=== PATIENT | female | born 1960 | race Caucasian/White ===

== ENCOUNTER 2016-10-09 17:32 | Emergency (ER) | payer OTHER ==
[2016-10-09 17:37] VITALS: BMI 36.6
[2016-10-09] MEDS ORDERED: KETOROLAC TROMETHAMINE 30 MG/1 ML VIAL IVPUSH ONE (19:10)
--- NOTE | 2016-10-09 19:11 | PDOC ---
[id number] No Limitations - History of Present Illness Initial Comments: 10/09/16 19:11 The patient is a 56 year old female, with a significant past medical history of hypertension( on enalapril and metoprolol), hyperlipidemia, and hepatitis C, who presents to the emergency department to the emergency department complaining of right-sided lower back pain radiating into her right groin for approximately 3 days. Patient reports her pain is intermittent and describe it as a tightness. Patient rates her pain a 9/10. She reports her pain is alleviated when standing, but exacerbated when lying down or sitting. She reports taking motrin and a muscle relaxant yesterday with no relief. The patient denies any associated fever, chills, nausea, vomiting, diarrhea, or constipation. The patient denies any dysuria, hematuria, frequency, or urgency. The patient reports she last took her hypertension medications yesterday, and admits she takes them every other day. The patient denies any headache, changes in vision, numbness, or paresthesias. The patient denies any chest pain, shortness of breath, diaphoresis, or palpitations. Allergies: None reported. Past Surgical History: None reported. Social History: Former smoker. Former heroine and cocaine user. Denies ETOH use. PCP: Dr. Orozco <Anselmo Vaughan - Last Filed: 10/09/16 19:11> <Quentin Marshall - Last Filed: 10/11/16 13:23> - General Chief Complaint: Pain, Acute Stated Complaint: PAIN, ACUTE Time Seen by Provider: 10/09/16 18:30 Past History <Anselmo Vaughan - Last Filed: 10/09/16 19:11> - Past Medical History HTN: Yes Liver Disease: Yes (HEP C) - Psycho/Social/Smoking Cessation Hx Anxiety: No Suicidal Ideation: No Smoking Status: Yes Smoking History: Never smoked Have you smoked in the past 12 months: No Number of Cigarettes Smoked Daily: 0 Hx Alcohol Use: No Drug/Substance Use Hx: No <Quentin Marshall - Last Filed: 10/11/16 13:23> - Past Medical History Allergies/Adverse Reactions: Allergies Allergy/AdvReac Type Severity Reaction Status Date / Time No Known Allergies Allergy Verified 10/09/16 17:38 Home Medications: Ambulatory Orders Enalapril Maleate [Vasotec -] 10 mg PO DAILY 07/07/12 Metoprolol Succinate [Toprol XL -] 25 mg PO BID 07/07/12 Review of Systems - Review of Systems Able to Perform ROS?: Yes Comments:: 10/09/16 19:11 CONSTITUTIONAL: Absent: Fever, Chills, Diaphoresis, Generalized Weakness, Malaise, Loss of Appetite HEENT: Absent: Rhinorrhea, Nasal Congestion, Throat Pain, Throat Swelling, Difficulty Swallowing, Mouth Swelling, Ear Pain, Eye Pain, Visual Changes CARDIOVASCULAR: Absent: Chest Pain, Syncope, Palpitations, Irregular Heart Rate, Lightheadedness , Peripheral Edema RESPIRATORY: Absent: Cough, Shortness of Breath, SOB with Exertion, Orthopnea, Wheezing, Stridor, Hemoptysis GASTROINTESTINAL: Absent: Abdominal pain, Abdominal Distension, Nausea, Vomiting, Diarrhea, Constipation, Melena, Hematochezia GENITOURINARY: Absent: Dysuria, Frequency, Urgency, Hesitancy, Genital Pain MUSCULOSKELETAL: Present: +Right lower back radiating into right groin Absent: Myalgia, Arthralgia, Joint Swelling, Neck Pain SKIN: Absent: Rash, Itching, Pallor HEMATOLOGIC/IMMUNOLOGIC: Absent: Easy Bleeding, Easy Bruising, Lymphadenopathy, Frequent infections ENDOCRINE: Absent: Unexplained Weight Gain, Unexplained Weight Loss, Heat Intolerance, Cold Intolerance NEUROLOGIC: Absent: Headache, Focal Weakness, Paresthesias, Vertigo, Lightheadedness, Unsteady Gait, Seizure, Mental Status Changes, Incontinence PSYCHIATRIC: Absent: Anxiety, Depression <Vaughan,Giomilsy - Last Filed: 10/09/16 19:11> *Physical Exam - Vital Signs Last Vital Signs Temp Pulse Resp BP Pulse Ox 97.9 F 66 18 201/120 96 10/09/16 17:34 10/09/16 17:34 10/09/16 17:34 10/09/16 17:34 10/09/16 17:34 - Physical Exam Comments: 10/09/16 19:12 GENERAL: The patient is awake, alert, and fully oriented, in no acute distress. HEAD: Normal with no signs of trauma. EYES: Pupils equal, round and reactive to light, extraocular movements intact, sclera anicteric, conjunctiva clear. ENT: Ears normal, nares patent, oropharynx clear without exudates. Moist mucous membranes. NECK: Normal range of motion, supple without lymphadenopathy, JVD, or masses. LUNGS: Breath sounds equal, clear to auscultation bilaterally. No wheezes, and no crackles. HEART: Regular rate and rhythm, normal S1 and S2 without murmur, rub or gallop. ABDOMEN: Soft, nontender, normoactive bowel sounds. No guarding, no rebound. No masses. BACK: No CVA tenderness EXTREMITIES: Normal range of motion, no edema. No clubbing or cyanosis. No cords , erythema, or tenderness. NEUROLOGICAL: Cranial nerves II through XII grossly intact. Normal speech, normal gait. PSYCH: Normal mood, normal affect. SKIN: Warm, Dry, normal turgor, no rashes or lesions noted. <Anselmo Vaughan - Last Filed: 10/09/16 19:11> - Vital Signs Last Vital Signs Temp Pulse Resp BP Pulse Ox 97.9 F 66 18 201/120 96 10/09/16 17:34 10/09/16 17:34 10/09/16 17:34 10/09/16 17:34 10/09/16 17:34 <Quentin Marshall - Last Filed: 10/11/16 13:23> ED Treatment Course - LABORATORY CBC & Chemistry Diagram: 10/09/16 19:10 10/09/16 19:10 <Quentin Marshall - Last Filed: 10/11/16 13:23> Medical Decision Making - Medical Decision Making 10/11/16 13:22 flank pain and low back pain, r/o kidney stone vs musculoskeletal pain patient endorsed to Dr. Herbert pending labs and possible CT scan. <Quentin Marshall - Last Filed: 10/11/16 13:23> *DC/Admit/Observation/Transfer - Attestations Scribe Attestion: 10/09/16 19:12 Documentation prepared by Anselmo Vaughan, acting as forensic medical examiner for Quentin Marshall MD. <Anselmo Vaughan - Last Filed: 10/09/16 19:11> <Quentin Marshall - Last Filed: 10/11/16 13:23> Diagnosis at time of Disposition: Flank pain, Musculoskeletal pain - Discharge Dispostion Disposition: HOME Condition at time of disposition: Good - Referrals Referrals: Evelyn Orozco MD [Primary Care Provider] - 24 hours - Patient Instructions Additional Instructions: Rest, Tylenol or Motrin for pain Warm compresses Followup with your primary care physician in 24-48 hours Return immediately if you worsen in any way Also, as we discussed, you are overdue for your routine Pap smear and ASSISTANT BASKETBALL COACH exam Please also call your ASSISTANT BASKETBALL COACH to arrange an appointment - Post Discharge Activity Work/School Note: Back to Work
[2016-10-09] MEDS ORDERED: SODIUM CHLORIDE 1,000 ML IV SCH (19:15)
[2016-10-09 19:17] LABS: BASOPHIL 0.6 % (0-2.0); EOSINOPHIL 1.9 % (0-4.5); MCH 30.7 pg (25.7-33.7); MCHC 32.5 g/dl (32.0-36.0); MEAN CELL VOLUME 94.7 fl (80-96); MEAN PLT VOLUME 9.4 fl (7.5-11.1); NEUTROPHILS 57.6 % (42.8-82.8); PLATELET COUNT 208 K/MM3 (134-434); RDW 13.3 % (11.6-15.6); WHITE BLOOD COUNT 7.2 K/mm3 (4.0-10.0)
[2016-10-09 19:44] LABS: ALBUMIN 3.9 g/dl (3.4-5.0); ALK PHOS 89 U/L (45-117); ANION GAP 13 (8-16); BILIRUBIN,TOTAL 0.4 mg/dL (0.2-1.0); CALCIUM 8.9 mg/dL (8.5-10.1); CO2 21 mmol/L (21-32); COCKROFT - GAULT 183.9995; CREATININE 0.5 mg/dL (0.55-1.02); GLUCOSE,RANDOM 113 mg/dL (74-106); SGPT/ALT 32 U/L (12-78); TOT PROT 7.4 g/dl (6.4-8.2)
[2016-10-09] MEDS ORDERED: KETOROLAC TROMETHAMINE 30 MG/1 ML VIAL ONE (19:46)
[2016-10-09 19:47] LABS: SGOT/AST 32 U/L (15-37)
[2016-10-09] MEDS ORDERED: METOPROLOL SUCCINATE 25 MG TAB.SR.24H (FP) PO ONE (20:56)
[2016-10-09] MEDS ORDERED: METOPROLOL SUCCINATE 50 MG TAB.SR.24H (FP) ONE (21:00)
[2016-10-09] MEDS ORDERED: ENALAPRIL MALEATE 10 MG TABLET (FP) PO SCH (21:00)
[2016-10-09] MEDS ORDERED: ENALAPRIL MALEATE 5 MG TABLET (FP) ONE (21:00)
[2016-10-09] MEDS ORDERED: ENALAPRIL MALEATE 5 MG TABLET (FP) PO ONE (21:15)
[2016-10-09] MEDS ORDERED: ENALAPRIL MALEATE 5 MG TABLET (FP) PO SCH (21:15)
[2016-10-09] MEDS ORDERED: METOPROLOL SUCCINATE 50 MG TAB.SR.24H (FP) PO ONE (21:15)
[2016-10-09 21:28] LABS: URINE APPEARANCE CLEAR; URINE BILIRUBIN NEGATIVE (NEGATIVE); URINE BLOOD NEGATIVE (NEGATIVE); URINE COLOR LTYELLOW; URINE GLUCOSE (UA) NEGATIVE (NEGATIVE); URINE KETONE NEGATIVE (NEGATIVE); URINE LEUK ESTERASE NEGATIVE (NEGATIVE); URINE NITRITE NEGATIVE (NEGATIVE); URINE PROTEIN NEGATIVE (NEGATIVE); URINE UROBILINOGEN NEGATIVE E.U./dl (0.2-1.0)
[2016-10-10 07:52] VITALS: BP 143/78; PULSE 65; TEMP 98.1
--- NOTE | 2016-10-10 08:03 | PDOC ---
*Physical Exam - Vital Signs Last Vital Signs Temp Pulse Resp BP Pulse Ox 98.1 F 65 18 143/78 97 10/10/16 07:45 10/10/16 07:45 10/10/16 07:45 10/10/16 07:45 10/10/16 07:45 - Physical Exam Comments: 10/10/16 08:01 SIGN IN Sign-out received from outgoing Emergency Physician Pt interviewed and examined Ancillary studies reviewed Patient was seen by Dr. Marshall yesterday, and signed out to Dr. Awilda Kimbrough signed the patient out to me this morning, and the patient had still not had her CT scan yet The patient is a 56 year old female, with a significant past medical history of hypertension( on enalapril and metoprolol), hyperlipidemia, and hepatitis C, who presents to the emergency department to the emergency department complaining of right-sided lower back pain radiating into her right groin for approximately 3 days. She states the pain is been off and on and she describes it as a "tight feeling" She denies any associated dysuria urgency or frequency, or hematuria She is 10 years post menopausal, and denies any vaginal spotting or bleeding She denies any nausea vomiting or diarrhea or constipation She has no history of kidney stones She states the pain is somewhat worse with musculoskeletal maneuvers, and is worse when lying down or sitting and better standing She denies any fevers or chills She denies any prior abdominal surgery Physical exam Vital Signs - 24 hr 10/09/16 10/09/16 10/09/16 17:34 20:56 23:07 Temperature 97.9 F 98.3 F Pulse Rate 66 Pulse Rate [ 62 64 Right Radial] Pulse Rate [ Right] Respiratory 18 20 20 Rate Blood Pressure 201/120 Blood Pressure 195/110 154/88 [Right Arm] O2 Sat by Pulse 96 99 98 Oximetry (%) 10/10/16 10/10/16 04:59 07:45 Temperature 97.7 F 98.1 F Pulse Rate Pulse Rate [ 58 L Right Radial] Pulse Rate [ 65 Right] Respiratory 20 18 Rate Blood Pressure Blood Pressure 129/71 143/78 [Right Arm] O2 Sat by Pulse 98 97 Oximetry (%) Patient is alert and answering questions Head is normocephalic and atraumatic Lungs are clear bilaterally Back- There is no CVA tenderness Heart is regular rate and rhythm Abdomen normal active bowel sounds without a past medical There is minimal to no abdominal tenderness at this time Labwork reviewed Laboratory Results - last 24 hr 10/09/16 10/09/16 10/09/16 19:10 19:10 21:10 WBC 7.2 RBC 4.51 Hgb 13.9 Hct 42.7 MCV 94.7 MCHC 32.5 RDW 13.3 Plt Count 208 MPV 9.4 Neutrophils % 57.6 Lymphocytes % 33.3 D Monocytes % 6.6 Eosinophils % 1.9 D Basophils % 0.6 Sodium 140 Potassium 4.6 Chloride 106 Carbon Dioxide 21 Anion Gap 13 BUN 9 D Creatinine 0.5 L Creat Clearance w eGFR > 60 Random Glucose 113 H Calcium 8.9 Total Bilirubin 0.4 D AST 32 D ALT 32 Alkaline Phosphatase 89 Total Protein 7.4 Albumin 3.9 Lipase 88 Urine Color Ltyellow Urine Appearance Clear Urine pH 6.0 D Ur Specific [place] 1.012 Urine Protein Negative Urine Glucose (UA) Negative Urine Ketones Negative Urine Blood Negative Urine Nitrite Negative Urine Bilirubin Negative Urine Urobilinogen Negative Ur Leukocyte Esterase Negative CT scan of the abdomen and pelvis This is an IOC reading There are bilateral punctate nonobstructing renal stones Normal unenhanced liver gallbladder pancreas spleen and adrenal glands The stomach, and abdominal small and large bowel are normal There is no aortic aneurysm There is no significant retroperitoneal lymphadenopathy Stable, mild mesenteric edema may represent panniculitis, likely an incidental finding The appendix is normal The uterus and adnexal structures are normal Urinary bladder is normal There is no pelvic free fluid No pelvic lymphadenopathy is identified Final impression Punctate bilateral renal stones Mesenteric panniculitis is likely an incidental finding No acute pathology is seen in the abdomen or pelvis Patient is pain-free at this time Will discharge to home for follow-up with her primary care physician Pain is likely musculoskeletal in nature 10/10/16 09:[address] scan of the abdomen and pelvis as read by Dr. Martinez Final impression- Bilateral nephrolithiasis with no evidence of obstructive uropathy or acute pathology within the abdomen or pelvis There is no CT evidence of acute appendicitis ED Treatment Course - LABORATORY CBC & Chemistry Diagram: 10/09/16 19:10 10/09/16 19:10 - ADDITIONAL ORDERS Additional order review: Laboratory Results 10/09/16 21:10 Urine Color Ltyellow Urine Appearance Clear Urine pH 6.0 D Ur Specific [place] 1.012 Urine Protein Negative Urine Glucose (UA) Negative Urine Ketones Negative Urine Blood Negative Urine Nitrite Negative Urine Bilirubin Negative Urine Urobilinogen Negative Ur Leukocyte Esterase Negative 10/09/16 19:10 RBC 4.51 MCV 94.7 MCHC 32.5 RDW 13.3 MPV 9.4 Neutrophils % 57.6 Lymphocytes % 33.3 D Monocytes % 6.6 Eosinophils % 1.9 D Basophils % 0.6 - Medications Given in the ED: ED Medications Discontinued Medications Generic Name Dose Route Start Last Admin Trade Name Darlene PRN Reason Stop Dose Admin Enalapril Maleate 10 mg 10/09/16 21:15 10/10/16 00:04 Vasotec - PO 10/09/16 21:16 Not Given ONCE ONE Ketorolac Tromethamine 30 mg 10/09/16 19:10 10/09/16 19:54 Toradol Injection - IVPUSH 10/09/16 19:11 30 mg ONCE ONE Administration Metoprolol Succinate 25 mg 10/09/16 21:15 10/10/16 00:03 Toprol Xl - PO 10/09/16 21:16 Not Given ONCE ONE *DC/Admit/Observation/Transfer Diagnosis at time of Disposition: Flank pain, Musculoskeletal pain - Discharge Dispostion Disposition: HOME Condition at time of disposition: Good - Referrals Referrals: Evelyn Orozco MD [Primary Care Provider] - 24 hours - Patient Instructions Additional Instructions: Rest, Tylenol or Motrin for pain Warm compresses Followup with your primary care physician in 24-48 hours Return immediately if you worsen in any way Also, as we discussed, you are overdue for your routine Pap smear and EXPERT WITNESS exam Please also call your EXPERT WITNESS to arrange an appointment - Post Discharge Activity Work/School Note: Back to Work
== END 2016-10-10 08:20 | disposition home or self-care (01) ==
LOC: JER 17:32
PROC: 3E0333Z Introduction of Anti-inflammatory into Peripheral Vein, Percutaneous Approach (ICD-10-PCS; principal; 2016-10-09)
DX: N20.0 Calculus of kidney (principal); I10 Essential (primary) hypertension; E78.5 Hyperlipidemia, unspecified; E78.00 Pure hypercholesterolemia, unspecified; B18.2 Chronic viral hepatitis C
CPT/HCPCS: 36415; 74176; 80053; 81003; 83690; 85025; 87086; 99283-25

== ENCOUNTER 2017-06-13 15:23 | Emergency (ER) | payer OTHER ==
[2017-06-13 15:41] VITALS: BP 148/108; PULSE 62; TEMP 98.4; BMI 36.6
--- NOTE | 2017-06-13 15:43 | PDOC ---
History of Present Illness - General Chief Complaint: Pain, Acute Stated Complaint: GROIN PAIN Time Seen by Provider: 06/13/17 15:33 History Source: Patient Exam Limitations: No Limitations - History of Present Illness Initial Comments: 06/13/17 15:34 I have performed a brief in-person evaluation of this patient. The patient presents with a chief complaint of: RLQ pain, + nausea, no vomiting. Pertinent physical exam findings: tenderness to the RLQ. I have ordered the following: UA, Urine culture, CBC. CMP The patient will proceed to the ED for further evaluation. Past History - Past Medical History Allergies/Adverse Reactions: Allergies Allergy/AdvReac Type Severity Reaction Status Date / Time No Known Allergies Allergy Verified 06/13/17 15:33 Home Medications: Ambulatory Orders Enalapril Maleate [Vasotec -] 10 mg PO DAILY 07/07/12 Metoprolol Succinate [Toprol XL -] 25 mg PO BID 07/07/12 HTN: Yes Liver Disease: Yes (HEP C) - Suicide/Smoking/Psychosocial Hx Smoking Status: Yes Smoking History: Never smoked Have you smoked in the past 12 months: No Number of Cigarettes Smoked Daily: 0 Hx Alcohol Use: No Drug/Substance Use Hx: No
--- NOTE | 2017-06-13 15:50 | PDOC ---
Rapid Medical Evaluation Chief Complaint: Pain, Acute Time Seen by Provider: 06/13/17 15:33 Medical Evaluation: Allergies Allergy/AdvReac Type Severity Reaction Status Date / Time No Known Allergies Allergy Verified 06/13/17 15:33 Vital Signs Temp Pulse Resp BP Pulse Ox 98.4 F 62 16 148/108 100 06/13/17 15:33 06/13/17 15:33 06/13/17 15:33 06/13/17 15:33 06/13/17 15:33 06/13/17 15:48 I have performed a brief in-person evaluation of this patient. The patient presents with a chief complaint of: RLQ pain and tenderness, + nausea and vomiting. Symptoms started last night. No fever. Pertinent physical exam findings: + Right lower quadrant tenderness. sclera icteric, h/o hep c I have ordered the following: CBC, CMP , UA, UC, Lipase, Saline Lock. The patient will proceed to the ED for further evaluation. Discharge Disposition - Discharge Dispostion Last Admission D/C Date: 07/09/12 - Referrals - Patient Instructions - Post Discharge Activity
[2017-06-13 16:17] LABS: BASO % 0.4 % (0-2.0); EOS % 1.4 % (0-4.5); HEMATOCRIT 40.2 % (32.4-45.2); HEMOGLOBIN 13.4 GM/dL (10.7-15.3); LYMPH % 24.3 % (8-40); MCH 31.2 pg (25.7-33.7); MCHC 33.3 g/dl (32.0-36.0); MEAN CELL VOLUME 93.7 fl (80-96); MEAN PLT VOLUME 9.2 fl (7.5-11.1); MONO % 7.4 % (3.8-10.2); NEUT % 66.5 % (42.8-82.8); PLATELET COUNT 182 K/MM3 (134-434); RBC 4.29 M/mm3 (3.60-5.2); RDW 13.1 % (11.6-15.6); WHITE BLOOD COUNT 8.4 K/mm3 (4.0-10.0)
[2017-06-13 16:18] LABS: URINE APPEARANCE CLEAR; URINE BILIRUBIN NEGATIVE (NEGATIVE); URINE BLOOD 2+ (NEGATIVE); URINE COLOR YELLOW; URINE GLUCOSE (UA) NEGATIVE (NEGATIVE); URINE KETONE TRACE (NEGATIVE); URINE LEUK ESTERASE TRACE (NEGATIVE); URINE NITRITE NEGATIVE (NEGATIVE); URINE PROTEIN NEGATIVE (NEGATIVE); URINE UROBILINOGEN NEGATIVE mg/dL (0.2-1.0)
[2017-06-13 16:21] LABS: EPI CELLS RARE /HPF (FEW); URINE MUCUS RARE
--- NOTE | 2017-06-13 16:37 | PDOC ---
Attending Attestation - Resident Resident Name: Peter Holm - ED Attending Attestation I have performed the following: I have examined & evaluated the patient, The case was reviewed & discussed with the resident, I agree w/resident's findings & plan, Exceptions are as noted - HPI HPI: 06/14/17 01:33 Abdominal Pain - Physicial Exam PE: 06/14/17 01:33 Abdomen Soft and Benign - Medical Decision Making 06/14/17 01:33 I agree evelyn Holm Assessment and Plan
[2017-06-13 16:45] LABS: ALBUMIN 4.1 g/dl (3.4-5.0); ANION GAP 10 (8-16); BILIRUBIN,TOTAL 0.3 mg/dL (0.2-1.0); BLOOD UREA NITROGEN 10 mg/dL (7-18); CALCIUM 8.8 mg/dL (8.5-10.1); CHLORIDE 107 mmol/L (98-107); CO2 24 mmol/L (21-32); CREATININE 0.6 mg/dL (0.55-1.02); GLUCOSE,RANDOM 90 mg/dL (74-106); POTASSIUM 4.1 mmol/L (3.5-5.1); SGOT/AST 20 U/L (15-37); SGPT/ALT 24 U/L (12-78); SODIUM 141 mmol/L (136-145); TOT PROT 7.2 g/dl (6.4-8.2)
[2017-06-13 16:46] LABS: ALK PHOS 83 U/L (45-117)
[2017-06-13] MEDS ORDERED: KETOROLAC TROMETHAMINE 15 MG/ML VIAL IVPUSH ONE (17:07)
[2017-06-13] MEDS ORDERED: KETOROLAC TROMETHAMINE 15 MG/ML VIAL ONE ×2 (17:32→18:14)
[2017-06-13] MEDS ORDERED: SODIUM CHLORIDE 1,000 ML IV STA (18:13)
--- NOTE | 2017-06-13 18:13 | PDOC ---
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 She describes it as a sudden onset of pain in the RLQ radiating down her leg and to her back. Patient is complaining of two episodes of vomiting. Denies pain with urination, fevers, and chills. Last bowel movement yesterday. Denies blood and bile in vomit. Denies chest pain, shortness of breath, and cough. Denies prodromal generalized abdominal pain. Past History - Past Medical History Allergies/Adverse Reactions: Allergies Allergy/AdvReac Type Severity Reaction Status Date / Time No Known Allergies Allergy Verified 06/13/17 15:33 Home Medications: Ambulatory Orders Enalapril Maleate [Vasotec -] 10 mg PO DAILY 07/07/12 Metoprolol Succinate [Toprol XL -] 25 mg PO BID 07/07/12 HTN: Yes Liver Disease: Yes (HEP C) - Suicide/Smoking/Psychosocial Hx Smoking Status: Yes Smoking History: Never smoked Have you smoked in the past 12 months: No Number of Cigarettes Smoked Daily: 0 Hx Alcohol Use: No Drug/Substance Use Hx: No Review of Systems - Review of Systems Comments:: 06/13/17 18:17 GENERAL/CONSTITUTIONAL: No fever or chills. No weakness. HEAD, EYES, EARS, NOSE AND THROAT: No change in vision. No sore throat. CARDIOVASCULAR: No chest pain or shortness of breath RESPIRATORY: No cough, wheezing, or hemoptysis. GASTROINTESTINAL: Positive for nausea and vomiting. Negative for diarrhea or constipation. GENITOURINARY: No dysuria, frequency, or change in urination. MUSCULOSKELETAL: No joint or muscle swelling or pain. No neck or back pain. SKIN: No rash NEUROLOGIC: No headache, vertigo, loss of consciousness, or change in strength/ sensation. ENDOCRINE: No increased thirst. No abnormal weight change HEMATOLOGIC/LYMPHATIC: No anemia, easy bleeding, or history of blood clots. *Physical Exam - Vital Signs Last Vital Signs Temp Pulse Resp BP Pulse Ox 98.4 F 62 16 148/108 100 06/13/17 15:33 06/13/17 15:33 06/13/17 15:33 06/13/17 15:33 06/13/17 15:33 - Physical Exam Comments: 06/13/17 18:18 GENERAL: Awake, alert, and fully oriented, in no acute distress HEAD: No signs of trauma, normocephalic, atraumatic EYES: PERRLA, EOMI, sclera anicteric, conjunctiva clear ENT: Auricles normal inspection, hearing grossly normal, nares patent, oropharynx clear without exudates. Moist mucosa NECK: Normal ROM, supple, no lymphadenopathy, JVD, or masses LUNGS: No distress, speaks full sentences, clear to auscultation bilaterally HEART: Regular rate and rhythm, normal S1 and S2, no murmurs, rubs or gallops, peripheral pulses normal and equal bilaterally. ABDOMEN: Mildly tender in RLQ. Mild CVA tenderness. Normoactive bowel sounds. No guarding, no rebound. No masses EXTREMITIES: Normal inspection, Normal range of motion, no edema. No clubbing or cyanosis. NEUROLOGICAL: Cranial nerves II through XII grossly intact. Normal speech, no focal sensorimotor deficits ED Treatment Course - LABORATORY CBC & Chemistry Diagram: 06/13/17 15:59 06/13/17 15:59 - ADDITIONAL ORDERS Additional order review: Laboratory Results 06/13/17 06/13/17 06/13/17 15:59 15:59 15:40 Sodium 141 Potassium 4.1 Chloride 107 Carbon Dioxide 24 Anion Gap 10 BUN 10 Creatinine 0.6 Creat Clearance w eGFR > 60 Random Glucose 90 D Calcium 8.8 Total Bilirubin 0.3 D AST 20 D ALT 24 D Alkaline Phosphatase 83 Total Protein 7.2 Albumin 4.1 Lipase 102 Urine Color Yellow Urine Appearance Clear Urine pH 5.0 Ur Specific [place] 1.029 Urine Protein Negative Urine Glucose (UA) Negative Urine Ketones Trace H Urine Blood 2+ H Urine Nitrite Negative Urine Bilirubin Negative Urine Urobilinogen Negative Urine WBC (Auto) 2 Urine RBC (Auto) 41 Ur Epithelial Cells Rare Urine Mucus Rare 06/13/17 15:59 RBC 4.29 MCV 93.7 MCHC 33.3 RDW 13.1 MPV 9.2 Neutrophils % 66.5 Lymphocytes % 24.3 D Monocytes % 7.4 Eosinophils % 1.4 Basophils % 0.4 - RADIOLOGY Radiology Studies Ordered: Category Date Time Status ABDOMEN & PELVIS CT WITH CONTR [CT] Stat CT Scan 06/13/17 17:08 Ordered Medical Decision Making - Medical Decision Making 06/13/17 18:25 57F with history of IVDA, HCV, and HTN here today with RLQ abdominal pain. Vital signs stable and normal. Physical exam not impressive. Differential includes, but is not limited to: kidney stone, musculoskeletal pain, appendicitis. Low concern for appendicitis. Abdominal labs drawn at triage. 06/13/17 18:26 Laboratory Tests 06/13/17 06/13/17 06/13/17 15:40 15:59 15:59 WBC 8.4 Hgb 13.4 Hct 40.2 Plt Count 182 BUN 10 Creatinine 0.6 Lipase Urine Blood 2+ H Urine WBC (Auto) 2 Urine RBC (Auto) 41 06/13/17 15:59 WBC Hgb Hct Plt Count BUN Creatinine Lipase 102 Urine Blood Urine WBC (Auto) Urine RBC (Auto) CBC normal. CMP normal. Lipase negative. UA shows blood in urine. 06/13/17 23:00 Kidney stones seen on wet read of CT. Patient is complaining of increased pain. Given history of heroin abuse, believe that ketamine is best option for pain control after failure of toradol. 06/13/17 23:56 Patient's pain control with ketamine, but complained of feeling strange after administration. Signed out to Dr Carrera *DC/Admit/Observation/Transfer Diagnosis at time of Disposition: Abdominal pain - Referrals - Patient Instructions - Post Discharge Activity
[2017-06-13] MEDS ORDERED: KETAMINE HCL 200 MG/20 ML VIAL IVPUSH ONE (22:58)
[2017-06-13] MEDS ORDERED: KETAMINE HCL 200 MG/20 ML VIAL ONE (23:06)
--- NOTE | 2017-06-14 00:20 | PDOC ---
*Physical Exam - Vital Signs Last Vital Signs Temp Pulse Resp BP Pulse Ox 98.4 F 62 16 148/108 100 06/13/17 15:33 06/13/17 15:33 06/13/17 15:33 06/13/17 15:33 06/13/17 15:33 - Physical Exam Comments: 06/14/17 00:20 General Appearance: Nourished. No Apparent Distress HEENT: EOMI, JOANNA. No Pharyngeal Erythema, Tonsillar Exudate, Tonsillar Erythema Neck: No Cervical Lymphadenopathy Respiratory/Chest: Lungs Clear, Normal Breath Sounds. No Crackles, Rales, Rhonchi, Wheezing Cardiovascular: Regular Rhythm, Regular Rate. No Murmur, Gallops, Rubs Gastrointestinal/Abdominal: Normal Bowel Sounds, Soft. No Guarding, Rebound, Tenderness Musculoskeletal: No CVA Tenderness Extremity: Normal Capillary Refill Integumentary: Normal Color, Dry, Warm Neurologic: Fully Oriented, Alert, Normal Mood/Affect, Normal Response, ED Treatment Course - LABORATORY CBC & Chemistry Diagram: 06/13/17 15:59 06/13/17 15:59 - ADDITIONAL ORDERS Additional order review: Laboratory Results 06/13/17 06/13/17 06/13/17 15:59 15:59 15:40 Sodium 141 Potassium 4.1 Chloride 107 Carbon Dioxide 24 Anion Gap 10 BUN 10 Creatinine 0.6 Creat Clearance w eGFR > 60 Random Glucose 90 D Calcium 8.8 Total Bilirubin 0.3 D AST 20 D ALT 24 D Alkaline Phosphatase 83 Total Protein 7.2 Albumin 4.1 Lipase 102 Urine Color Yellow Urine Appearance Clear Urine pH 5.0 Ur Specific [place] 1.029 Urine Protein Negative Urine Glucose (UA) Negative Urine Ketones Trace H Urine Blood 2+ H Urine Nitrite Negative Urine Bilirubin Negative Urine Urobilinogen Negative Ur Leukocyte Esterase Negative Urine WBC (Auto) 2 Urine RBC (Auto) 41 Ur Epithelial Cells Rare Urine Mucus Rare 06/13/17 15:59 RBC 4.29 MCV 93.7 MCHC 33.3 RDW 13.1 MPV 9.2 Neutrophils % 66.5 Lymphocytes % 24.3 D Monocytes % 7.4 Eosinophils % 1.4 Basophils % 0.4 - Medications Given in the ED: ED Medications Discontinued Medications Generic Name Dose Route Start Last Admin Trade Name Freq PRN Reason Stop Dose Admin Sodium Chloride 1,000 mls @ 1,000 mls/hr 06/13/17 18:13 06/13/17 18:25 Normal Saline - IV 06/13/17 19:12 1,000 mls/hr ASDIR STA Administration Ketamine HCl 15 mg 06/13/17 22:58 06/13/17 23:06 Ketalar - IVPUSH 06/13/17 22:59 15 mg ONCE ONE Administration Ketorolac Tromethamine 15 mg 06/13/17 17:07 06/13/17 17:45 Toradol Injection - IVPUSH 06/13/17 17:08 15 mg ONCE ONE Administration Progress Note - Progress Note Progress Note: Received sign out from Dr. Holm. 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 Lab results have been negative thus far, although UA demonstrates signs of blood in the urine concerning for a kidney stone. Patient is pending CT read. Pain control has been difficult thus far. Dispo pending CT read and pain control. Medical Decision Making - Medical Decision Making 06/14/17 00:40 CT read has bilateral kidney stones as preliminarily read by the radio communication coordinator radiologist pending official radiology read. The patient's symptoms are likely due to kidney stones. Her pain is well controlled at this time and we are comfortable discharging the patient home at this time with urology follow up. We discussed the results and the plan with the patient who voiced understanding and is agreeable with the plan. *DC/Admit/Observation/Transfer Diagnosis at time of Disposition: Kidney stones - Discharge Dispostion Disposition: HOME Condition at time of disposition: Improved Admit: No - Referrals Referrals: Clinton Martins MD [Staff Physician] - - Patient Instructions Printed Discharge Instructions: DI for Kidney Stones Additional Instructions: Please return to the ER if you experience concerning or worsening symptoms including fevers, vomiting, or severe pain. Your symptoms are likely due to a kidney stone attempting to pass. You may use tylenol and ibuprofen at home to help manage your pain and continue to stay well hydrated. It is important that you call to schedule a follow up appointment with our urologist Dr. Martins whose number we have provided. Please call within 1 week to be seen. - Post Discharge Activity
== END 2017-06-14 00:52 | disposition home or self-care (01) ==
LOC: JER 15:23
PROC: 3E033NZ Introduction of Analgesics, Hypnotics, Sedatives into Peripheral Vein, Percutaneous Approach (ICD-10-PCS; principal; 2017-06-13)
PROC: 3E033GC Introduction of Other Therapeutic Substance into Peripheral Vein, Percutaneous Approach (ICD-10-PCS; 2017-06-13)
PROC: 3E0337Z Introduction of Electrolytic and Water Balance Substance into Peripheral Vein, Percutaneous Approach (ICD-10-PCS; 2017-06-13)
DX: R10.9 Unspecified abdominal pain (principal); I10 Essential (primary) hypertension; F11.90 Opioid use, unspecified, uncomplicated; B19.20 Unspecified viral hepatitis C without hepatic coma
CPT/HCPCS: 36415; 74176-TC; 80053; 81003; 81015; 83690; 85025; 87086; 99283-25

== ENCOUNTER 2017-07-28 09:20 | Day surgery (SDC) | payer OTHER ==
[2017-07-24 16:16] VITALS: BMI 36.6
[2017-07-28] MEDS ORDERED: MIDAZOLAM HCL 2 MG/2 ML SINGLE DOSE VIAL ONE (12:49)
--- NOTE | 2017-07-28 13:46 | OP ---
Operative Note - Note: Operative Date: 07/28/17 Pre-Operative Diagnosis: Right kidney stone Operation: Right ESWL Findings: Lower pole 8 mm stone Post-Operative Diagnosis: Same as Pre-op Anesthesia: Fractional
[2017-07-28 14:03] VITALS: PULSE 59; TEMP 98.5
[2017-07-28 14:54] VITALS: BP 148/78
--- NOTE | 2017-07-28 20:33 | OP ---
DATE OF OPERATION: 07/28/2017 PREOPERATIVE DIAGNOSIS: Right renal stone. POSTOPERATIVE DIAGNOSIS: Right renal stone. PROCEDURE: Right extracorporeal shock wave lithotripsy. ATTENDING: Steffi Hui MD ANESTHESIA: General. DESCRIPTION OF OPERATION: The patient was brought in the operating room, placed in supine position on the operating room table. Ultrasonography and fluoroscopy were performed. An 8-mm right lower-pole stone was identified. Extracorporeal shock wave lithotripsy was performed; 2500 impulses at 20 joules of power were administered to the stone. Excellent fragmentation of the stone was noted. No complications were noted. The disposition of the patient was to recovery room. STEFFI HUI M.D. [id number]
== END 2017-07-28 14:55 | disposition home or self-care (01) ==
LOC: JASU-SURG 09:20
PROVIDERS: ATTEND Urology
PROC: 0TF3XZZ Fragmentation in Right Kidney Pelvis, External Approach (ICD-10-PCS; principal; 2017-07-28 11:00)
DX: N20.0 Calculus of kidney (principal)

== ENCOUNTER 2018-03-31 17:21 | Emergency (ER) | payer OTHER ==
--- NOTE | 2018-03-31 18:16 | PDOC ---
Rapid Medical Evaluation Time Seen by Provider: 03/31/18 18:10 Medical Evaluation: Allergies Allergy/AdvReac Type Severity Reaction Status Date / Time No Known Allergies Allergy Verified 07/28/17 10:03 03/31/18 18:11 I have performed a brief in-person evaluation of this patient. The patient presents with a chief complaint of: chest pain x 1-2 hours and abdominal pain with nausea and vomiting since this am. Denies dizziness, reports nausea still persist. Pertinent physical exam findings are: NAD lungs clear bilaterally heart s1s2 non tender abdomen I have ordered the following: ekg, labs The patient will proceed to the ED for further evaluation.
[2018-03-31 18:18] VITALS: BMI 34.0
[2018-03-31] MEDS ORDERED: METOCLOPRAMIDE HCL INJECTION 10 MG/2 ML VIAL IVPUSH ONE (18:49)
[2018-03-31] MEDS ORDERED: KETOROLAC TROMETHAMINE 30 MG/1 ML VIAL IVPUSH ONE (18:50)
[2018-03-31] MEDS ORDERED: ONDANSETRON 4 MG/2 ML VIAL IVPUSH ONE (18:53)
--- NOTE | 2018-03-31 18:58 | PDOC ---
History of Present Illness - General Chief Complaint: Chest Pain Stated Complaint: CHEST PAIN, BACK AND SIDE PAIN Time Seen by Provider: 03/31/18 18:10 History Source: Patient Exam Limitations: No Limitations - History of Present Illness Initial Comments: 03/31/18 18:50 57 year old with history of HTN and kidney stone 1 year ago presents with L sided back pain radiating to the lower abdomen with "pounding" chest pain that lasted 1-2min then resolved and had 2 episodes of NBNB vomiting. The patient reports that her pain today feels similar to her prior kidney stone pain. She has had some nausea, generalized headache, chills and shaking. She denies any current chest pain, shortness of breath, fevers, diarrhea, constipation, dysuria , or hematuria. Past History - Past Medical History Allergies/Adverse Reactions: Allergies Allergy/AdvReac Type Severity Reaction Status Date / Time No Known Allergies Allergy Verified 03/31/18 18:14 Home Medications: Ambulatory Orders Enalapril Maleate [Vasotec -] 10 mg PO DAILY 07/07/12 Metoprolol Succinate [Toprol XL -] 25 mg PO BID 07/07/12 Ibuprofen [Motrin -] 400 mg PO TID #21 tablet 03/31/18 Oxycodone HCl/Acetaminophen [Percocet 5-325 mg Tablet -] 1 tab PO TID PRN #10 tablet MDD 3 03/31/18 Tamsulosin HCl [Flomax] 0.4 mg PO DAILY #14 cap.er.24h 03/31/18 COPD: No HTN: Yes Liver Disease: Yes (HEP C RX) - Suicide/Smoking/Psychosocial Hx Smoking Status: Yes Smoking History: Never smoked Have you smoked in the past 12 months: No Number of Cigarettes Smoked Daily: 0 Hx Alcohol Use: No Drug/Substance Use Hx: No Substance Use Type: None Review of Systems - Review of Systems Able to Perform ROS?: Yes Is the patient limited Arabic proficient: No Constitutional: Yes: See HPI. No: Chills, Diaphoresis, Fever HEENTM: No: Eye Pain, Blurred Vision, Tinnitus Respiratory: No: Cough, Orthopnea, Shortness of Breath Cardiac (ROS): No: Chest Pain, Lightheadedness ABD/GI: Yes: Diarrhea, Nausea, Vomiting : No: Burning, Dysuria, Hematuria Musculoskeletal: Yes: See HPI, Back Pain Neurological: No: Headache, Numbness, Tingling *Physical Exam - Vital Signs Last Vital Signs Temp Pulse Resp BP Pulse Ox 98.6 F 68 16 197/103 H 99 03/31/18 18:16 03/31/18 18:16 03/31/18 18:16 03/31/18 18:16 03/31/18 18:16 - Physical Exam Comments: 03/31/18 19:03 GENERAL: Awake, alert, and fully oriented, in no acute distress HEAD: No signs of trauma, normocephalic, atraumatic EYES: EOMI, sclera anicteric, conjunctiva clear ENT: oropharynx clear without exudates. Moist mucosa NECK: Normal ROM, supple LUNGS: No distress, speaks full sentences, clear to auscultation bilaterally HEART: Regular rate and rhythm, normal S1 and S2, no murmurs, rubs or gallops, peripheral pulses normal and equal bilaterally. ABDOMEN: Soft,+ L CVA tenderness, normoactive bowel sounds. No guarding, no rebound. No masses EXTREMITIES : Normal inspection, Normal range of motion, no edema. No clubbing or cyanosis. NEUROLOGICAL: Cranial nerves II through XII grossly intact. Normal speech, no focal sensorimotor deficits SKIN: Warm, Dry, normal turgor, no rashes or lesions noted ED Treatment Course - LABORATORY CBC & Chemistry Diagram: 03/31/18 18:51 03/31/18 18:51 - RADIOLOGY Radiology Studies Ordered: Category Date Time Status ABDOMEN & PELVIS CT W/O CONTR [CT] Stat CT Scan 03/31/18 18:49 Ordered CXRPORT [CHEST X-RAY PORTABLE*] [RAD] Stat Radiology 03/31/18 18:48 Ordered Medical Decision Making - Medical Decision Making 03/31/18 19:03 57 year old with history of HTN and kidney stone 1 year ago presents with L sided back pain radiating to the lower abdomen with "pounding" chest pain that lasted 1-2min then resolved and had 2 episodes of NBNB vomiting. The patient reports that her pain today feels similar to her prior kidney stone pain. She has had some nausea, generalized headache, chills and shaking. She denies any current chest pain, shortness of breath, fevers, diarrhea, constipation, dysuria , or hematuria. DDX including but not limited to: ACS vs nephrolithiasis W/U: - cbc, cmp - Abd CT ED Course: CBC, CMP unremarkable. 03/31/18 21:29 Patient has a routine visit to nephrology tomorrow. 04/24/18 11:21 3mm L uteropelvic junction stone Patient will follow up with Nephrology appointment tomorrow. Patient stable for discharge. Informed of all lab and imaging results. Given follow up instructions and strict return precautions. Patient expressed understanding and agree to plan. *DC/Admit/Observation/Transfer Diagnosis at time of Disposition: Kidney stone on left side - Discharge Dispostion Disposition: HOME Condition at time of disposition: Stable Decision to Admit order: No - Prescriptions Prescriptions: Ibuprofen [Motrin -] 400 mg PO TID #21 tablet Oxycodone HCl/Acetaminophen [Percocet 5-325 mg Tablet -] 1 tab PO TID PRN #10 tablet MDD 3 PRN Reason: Severe Pain Tamsulosin HCl [Flomax] 0.4 mg PO DAILY #14 cap.er.24h - Referrals Referrals: Evelyn Orozco MD [Primary Care Provider] - - Patient Instructions Printed Discharge Instructions: Kidney Stones -- Adult Additional Instructions: You were seen in the ED for complaints of L flank pain. In the ED you were evaluated with labwork and imaging. Your results were remarkable for a 3mm L ureteropelvic junction kidney stone. There does not appear to be an acute need for immediate hospitalization. You are advised to follow up with your Primary Care Physician within 1 week. See your Clock Maker as scheduled for tomorrow. Return to the ED immediately if you experience worsening flank pain, abdominal pain, blood in the urine, dysuria, fevers, chest pain, nausea, vomiting or shortness of breath. - Post Discharge Activity
[2018-03-31] MEDS ORDERED: SODIUM CHLORIDE 1,000 ML IV SCH (19:00)
[2018-03-31] MEDS ORDERED: KETOROLAC TROMETHAMINE 30 MG/1 ML VIAL ONE (19:06)
[2018-03-31] MEDS ORDERED: METOCLOPRAMIDE HCL INJECTION 10 MG/2 ML VIAL ONE (19:06)
[2018-03-31 19:20] LABS: BASO % 0.3 % (0-2.0); EOS % 0.5 % (0-4.5); HEMATOCRIT 41.9 % (32.4-45.2); HEMOGLOBIN 13.7 GM/dL (10.7-15.3); LYMPH % 12.2 % (8-40); MCH 30.5 pg (25.7-33.7); MCHC 32.7 g/dl (32.0-36.0); MEAN CELL VOLUME 93.4 fl (80-96); MEAN PLT VOLUME 9.2 fl (7.5-11.1); MONO % 6.3 % (3.8-10.2); NEUT % 80.7 % (42.8-82.8); PLATELET COUNT 187 K/MM3 (134-434); RBC 4.48 M/mm3 (3.60-5.2); RDW 13.5 % (11.6-15.6); WHITE BLOOD COUNT 11.9 K/mm3 (4.0-10.0)
--- NOTE | 2018-03-31 19:36 | PDOC ---
Attending Attestation - Resident Resident Name: Iva Kunz - ED Attending Attestation I have performed the following: I have examined & evaluated the patient, The case was reviewed & discussed with the resident, I agree w/resident's findings & plan, Exceptions are as noted - Medical Decision Making 03/31/18 20:49 Ms Mendez is a 57 yo F who presents to the ER with a complaint of flank pain and chest pain She has a PMH of HTN and kidney stone She had severe flank pain and then developed chest pain This feels to her to be like her prior kidney stone 03/31/18 20:56 Laboratory Tests 03/31/18 03/31/18 18:51 19:15 Troponin I < 0.02 Urine Nitrite Negative Ur Leukocyte Esterase Negative Spiral CT pending Will repeat trop (pt heart score 2) 03/31/18 21:38 CT : 3mm stone Will discharge to home <Sonal Amezcua - Last Filed: 03/31/18 21:38> - HPI HPI: 03/31/18 22:24 The patient is a 57 year old female with a significant PMH of hypertension and kidney stones who presents to the emergency department with left sided back pain. The patient reports that he r back pain radiates to her lower abdomen. She states that this feels similar to her kidney stones in the past. The patient reports some associated chills, headache, nausea, and 2 episodes of vomiting with her pain. The patient also reports some chest pain that she describes as pounding and lasts 1-2 minutes.the patient denies any other symptoms. She denies any fever, diarrhea, constipation, she denies any current chest pain, shortness of breath, or dizziness. The patient denies any other complaints. PCP: Dr. Orozco - Physicial Exam PE: 03/31/18 22:23 GENERAL: The patient is in no acute distress. NECK: Normal range of motion, supple without lymphadenopathy, JVD, or masses. LUNGS: Breath sounds equal, clear to auscultation bilaterally. No wheezes, and no crackles. HEART:Regular rate and rhythm, normal S1 and S2 without murmur, rub or gallop. ABDOMEN: Soft, nontender, normoactive bowel sounds. No guarding, no rebound. No masses palpable. EXTREMITIES: Normal range of motion, no edema. No clubbing or cyanosis. No erythema, or tenderness. NEUROLOGICAL: Cranial nerves II through XII grossly intact. Normal speech. No focal neurological deficits. MUSCULOSKELETAL: Back non-tender to palpation, no CVA tenderness SKIN: Warm, Dry, normal turgor, no rashes or lesions noted. Documentation prepared by Farida Ugalde, acting as medical safety director for Sonal Amezcua MD. <Farida Ugalde - Last Filed: 03/31/18 22:24> Heart Score/ECG Review - History History: Slightly suspicious - Electrocardiogram EKG: Normal - Age Age: 45-65 - Risk Factors Risk Factors Heart Score: Yes Hx Hypertension Based on the list above the patient has:: 1-2 risk factors - Troponin Troponin: </= normal limit - Score Heart Score - Total: 2 <Sonal Amezcua - Last Filed: 03/31/18 21:38>
[2018-03-31 19:38] LABS: INR 1.08 (0.83-1.09); PROTHROMBIN TIME (PATIENT) 12.8 SEC (9.7-13.0)
[2018-03-31 19:41] LABS: ACTIVATED PTT 34.3 SECONDS (25.2-36.5)
[2018-03-31 19:44] LABS: URINE APPEARANCE CLEAR; URINE BILIRUBIN NEGATIVE (<2.0 mg/dL); URINE COLOR LTYELLOW; URINE GLUCOSE (UA) 1+ (NEGATIVE); URINE KETONE NEGATIVE (NEGATIVE); URINE LEUK ESTERASE NEGATIVE (NEGATIVE); URINE NITRITE NEGATIVE (NEGATIVE); URINE PROTEIN NEGATIVE (NEGATIVE); URINE UROBILINOGEN NEGATIVE mg/dL (0.2-1.0)
[2018-03-31 19:52] LABS: ALBUMIN 3.9 g/dl (3.4-5.0); ALK PHOS 77 U/L (45-117); ANION GAP 1 MMOL/L (8-16); BILIRUBIN,TOTAL 0.3 mg/dL (0.2-1); BLOOD UREA NITROGEN 12 mg/dL (7-18); CALCIUM 9.1 mg/dL (8.5-10.1); CHLORIDE 108 mmol/L (98-107); CO2 22 mmol/L (21-32); CREATININE 0.8 mg/dL (0.55-1.3); GLUCOSE,RANDOM 108 mg/dL (74-106); POTASSIUM 4.1 mmol/L (3.5-5.1); SGOT/AST 20 U/L (15-37); SGPT/ALT 22 U/L (13-61); SODIUM 131 mmol/L (136-145); TOT PROT 7.3 g/dl (6.4-8.2)
[2018-03-31 21:47] LABS: EPI CELLS R /HPF (FEW)
[2018-03-31 22:13] VITALS: BP 142/82; PULSE 77; TEMP 98.1
--- NOTE | 2018-04-02 09:22 | EKG ---
Test Reason : Blood Pressure : / mmHG Vent. Rate : 064 BPM Atrial Rate : 064 BPM P-R Int : 194 ms QRS Dur : 104 ms QT Int : 412 ms P-R-T Axes : 058 -13 011 degrees QTc Int : 425 ms POOR DATA QUALITY, INTERPRETATION MAY BE ADVERSELY AFFECTED NORMAL SINUS RHYTHM POSSIBLE LEFT ATRIAL ENLARGEMENT LEFT VENTRICULAR HYPERTROPHY NONSPECIFIC T WAVE ABNORMALITY ABNORMAL ECG WHEN COMPARED WITH ECG OF 03-JUL-2015 20:11, NO SIGNIFICANT CHANGE WAS FOUND Confirmed by NORBERTO LUNA MD ([id number]) on 04/02/2018 9:21:42 AM Referred By: Confirmed By:NORBERTO LUNA MD
== END 2018-03-31 22:13 | disposition home or self-care (01) ==
LOC: JER 17:21
PROC: 3E0337Z Introduction of Electrolytic and Water Balance Substance into Peripheral Vein, Percutaneous Approach (ICD-10-PCS; principal; 2018-03-31)
PROC: 3E0333Z Introduction of Anti-inflammatory into Peripheral Vein, Percutaneous Approach (ICD-10-PCS; 2018-03-31)
PROC: 3E033GC Introduction of Other Therapeutic Substance into Peripheral Vein, Percutaneous Approach (ICD-10-PCS; 2018-03-31)
DX: N20.0 Calculus of kidney (principal); Z87.442 Personal history of urinary calculi
CPT/HCPCS: 36415; 71045-TC-FY; 74176-TC; 80053; 81003; 81015; 84484; 85025; 85610; 85730; 87086; 93005; 93010; 96361; 96374; 96375; 99285-25; J7030

== ENCOUNTER 2018-10-29 09:16 | Emergency (ER) | payer OTHER ==
[2018-10-29] MEDS ORDERED: ALBUTEROL SO4 2.5/IPRATROPIUM 0.5 INH SOL 3 ML VIAL.NEB. NEB ONE ×3 (09:28→09:44)
[2018-10-29] MEDS ORDERED: DEXAMETHASONE SOD PHOSPHATE 10 MG/1 ML VIAL ONE (09:32)
--- NOTE | 2018-10-29 09:58 | PDOC ---
History of Present Illness <Jean Carlos Geronimo - Last Filed: 10/29/18 11:36> - General History Source: Patient Exam Limitations: Language Barrier - History of Present Illness Initial Comments: 10/29/18 10:41 58 yo F with PMhx of HTN and alopecia presents with one month history of worsening shortness of breath. She states for the past month she has had productive cough, productive of greenish sputum. She saw her primary doctor 3 weeks ago and was given a inhaler and medrol dose pack. She took medrol for one day and discontinued 2/2 SE of agitation. She then returned to PCP one week later and was given a 10 day course of Amoxicillin?, which she completed one week prior to this visit. She also endorses orthopnea. Denies CP,BREWER, SOB, palpitations, abdominal pain, nausea, vomiting, fever or chills. Timing/Duration: getting worse, changing over time Severity: moderate Associated Symptoms: reports: cough, fever/chills. denies: chest pain <Fernandez Olivas - Last Filed: 10/30/18 07:20> - General Chief Complaint: Shortness of Breath Stated Complaint: DIFFICULTY BREATHING Time Seen by Provider: 10/29/18 09:44 Past History <Jean Carlos Geronimo - Last Filed: 10/29/18 11:36> - Travel Traveled outside of the country in the last 30 days: No Close contact w/someone who was outside of country & ill: No - Past Medical History Asthma: Yes (as a child) COPD: No HTN: Yes Liver Disease: Yes (HEP C RX) - Suicide/Smoking/Psychosocial Hx Smoking Status: Yes Smoking History: Former smoker Have you smoked in the past 12 months: No Number of Cigarettes Smoked Daily: 0 If you are a former smoker, when did you quit?: 16 years ago Hx Alcohol Use: No Drug/Substance Use Hx: No Substance Use Type: None <Fernandez Olivas - Last Filed: 10/30/18 07:20> - Past Medical History Allergies/Adverse Reactions: Allergies Allergy/AdvReac Type Severity Reaction Status Date / Time No Known Allergies Allergy Verified 03/31/18 18:14 Home Medications: Ambulatory Orders Enalapril Maleate [Vasotec -] 10 mg PO DAILY 07/07/12 Metoprolol Succinate [Toprol XL -] 25 mg PO BID 07/07/12 Review of Systems - Review of Systems Able to Perform ROS?: Yes Is the patient limited Turkish proficient: No Constitutional: Yes: Fever <Fernandez Olivas - Last Filed: 10/30/18 07:20> *Physical Exam - Vital Signs Last Vital Signs Temp Pulse Resp BP Pulse Ox 98.1 F 75 16 139/82 100 10/29/18 11:17 10/29/18 11:17 10/29/18 11:17 10/29/18 11:17 10/29/18 11:17 <Jean Carlos Geronimo - Last Filed: 10/29/18 11:36> - Physical Exam General Appearance: Yes: Appropriately Dressed, Mild Distress HEENT: positive: JOANNA, Normal Voice Neck: positive: Supple Respiratory/Chest: positive: Respiratory Distress, Labored Respiration, Decreased Breath Sounds, Rhonchi, Wheezing. negative: Accessory Muscle Use Cardiovascular: positive: S1, S2, Tachycardia. negative: Edema, JVD, Murmur Vascular Pulses: Dorsalis-Pedis (R): 2+, Doralis-Pedis (L): 2+ Gastrointestinal/Abdominal: positive: Normal Bowel Sounds, Soft Musculoskeletal: positive: Normal Inspection, CVA Tenderness Extremity: positive: Normal Capillary Refill, Normal Inspection, Normal Range of Motion Integumentary: positive: Normal Color, Other Neurologic: positive: aircraft riveter II-XII NML intact, Fully Oriented, Alert, Normal Mood/ Affect <Fernandez Olivas - Last Filed: 10/30/18 07:20> ED Treatment Course - LABORATORY CBC & Chemistry Diagram: 10/29/18 10:27 10/29/18 10:27 - ADDITIONAL ORDERS Additional order review: Laboratory Results 10/29/18 10/29/18 10/29/18 10:27 10:27 10:27 WBC 11.6 H RBC 4.01 Hgb 12.6 Hct 38.1 MCV 94.9 MCH 31.3 MCHC 33.0 RDW 13.4 Plt Count 217 MPV 8.7 Absolute Neuts (auto) 10.1 H Neutrophils % 87.1 H Lymphocytes % 6.6 L D Monocytes % 3.4 L Eosinophils % 2.7 D Basophils % 0.2 Nucleated RBC % 0 VBG pH 7.40 POC VBG pCO2 44.8 POC VBG pO2 68.2 H VBG HCO3 27.5 VBG O2 Sat (Atiya) 93.5 H VBG Base Excess 2.8 H Sodium 138 Potassium 4.0 Chloride 104 Carbon Dioxide 27 Anion Gap 7 L BUN 8 Creatinine 0.4 L Est GFR (CKD-EPI)AfAm 132.13 Est GFR (CKD-EPI)NonAf 114.01 Random Glucose 110 H Calcium 9.2 Total Bilirubin 0.5 AST 28 ALT 21 Alkaline Phosphatase 71 Creatine Kinase 129 Troponin I 2.47 H* Total Protein 6.8 Albumin 3.4 10/29/18 10:27 RBC 4.01 MCV 94.9 MCHC 33.0 RDW 13.4 MPV 8.7 Neutrophils % 87.1 H Lymphocytes % 6.6 L D Monocytes % 3.4 L Eosinophils % 2.7 D Basophils % 0.2 - RADIOLOGY Radiology Studies Ordered: Category Date Time Status CHEST PA & LAT [RAD] Stat Radiology 10/29/18 09:28 Ordered - Medications Given in the ED: ED Medications Discontinued Medications Generic Name Dose Route Start Last Admin Trade Name Freq PRN Reason Stop Dose Admin Albuterol/Ipratropium 1 amp 10/29/18 09:28 10/29/18 10:00 Duoneb - NEB 10/29/18 09:29 1 amp ONCE ONE Administration <Jean Carlos Geronimo - Last Filed: 10/29/18 11:36> - LABORATORY CBC & Chemistry Diagram: 10/29/18 10:27 10/29/18 10:27 <Fernandez Olivas - Last Filed: 10/30/18 07:20> Medical Decision Making - Medical Decision Making 10/29/18 11:21 58 yo F with PMhx of HTN and alopecia presents with one month history of worsening shortness of breath. Based off history differential diagnosis includes but not limited to bronchitis, PNA, asthma, CHF, ACS. Initial EKG shows ST-elevations in II, III, AVF. Will send for CBC, CMP, blood cultures, CXR , and cardiac profile. 10/29/18 11:30 Troponin I was postive. Possible transfer to [facility] for cardiac cath. 10/29/18 11:47 Patient accepted for transfer to [facility]. Loaded with Heparin, 325 ASA and Brillinta. <Fernandez Olivas - Last Filed: 10/30/18 07:20> *DC/Admit/Observation/Transfer - Discharge Dispostion Decision to Admit order: No <Jean Carlos Geronimo - Last Filed: 10/29/18 11:36> - Discharge Dispostion Decision to Admit order: No - Transfer to Acute Care Facility Receiving Facility: [facility] Transfer comment: 10/29/18 11:34 NSTEMI accepted to [facility]. <Fernandez Olivas - Last Filed: 10/30/18 07:20> Diagnosis at time of Disposition: STEMI (ST elevation myocardial infarction) Qualifiers: Involved coronary artery: unspecified coronary artery Qualified Code(s): I21.3 - ST elevation (STEMI) myocardial infarction of unspecified site - Discharge Dispostion Disposition: TRANSFER ACUTE CARE/OTHER HOSP Condition at time of disposition: Guarded - Referrals Referrals: ON STAFF,NOT [Primary Care Provider] - - Patient Instructions Printed Discharge Instructions: Heart Attack - Post Discharge Activity
[2018-10-29 10:20] VITALS: TEMP 98.1; BMI 28.2
[2018-10-29 10:40] LABS: BASO % 0.2 % (0-2.0); EOS % 2.7 % (0-4.5); HEMATOCRIT 38.1 % (32.4-45.2); HEMOGLOBIN 12.6 GM/dL (10.7-15.3); LYMPH % 6.6 % (8-40); MCH 31.3 pg (25.7-33.7); MEAN CELL VOLUME 94.9 fl (80-96); MEAN PLT VOLUME 8.7 fl (7.5-11.1); MONO % 3.4 % (3.8-10.2); NEUT % 87.1 % (42.8-82.8); PLATELET COUNT 217 K/MM3 (134-434); RBC 4.01 M/mm3 (3.60-5.2); RDW 13.4 % (11.6-15.6); VENOUS PC02 44.8 mmHg (41-51); VENOUS PH 7.4 (7.31-7.41); VENOUS PO2 68.2 mmHg (30-40); WHITE BLOOD COUNT 11.6 K/mm3 (4.0-10.0)
--- NOTE | 2018-10-29 10:48 | PDOC ---
Attending Attestation - Resident Resident Name: Fernandez Olivas - ED Attending Attestation I have performed the following: I have examined & evaluated the patient, The case was reviewed & discussed with the resident, I agree w/resident's findings & plan, Exceptions are as noted - HPI HPI: 10/29/18 10:44 58y F hx of alopecia, htn presents with coughing for 1 month productive of whitish/greenish sputum pt notes some pain in the chest/ack/tightness when she coughs for the past week. denies any hemoptysis notes some arrington/orthpnea PMD - gave albuterol/medrol dose pack that she only took one day due to side effects, and then was given amoxillclin. Endorses sensation of dysuphasia congestion, denies any fever, n/v, recent travel, hemoptysis, leg swelling. Pt has been sleeping in a recliner the psat few nights no improvement with inhaler/albuterol no known cardiac disease last stress test was 2 yrs ago smoking ~16 yrs ago - Physicial Exam PE: 10/29/18 11:14 GENERAL: The patient is awake, alert, and fully oriented, Nontoxic - in no acute distress. HEAD: Normocephalic, atraumatic. EYES: extraocular movements intact, sclera anicteric, conjunctiva clear. ENT: Normal voice, Moist mucous membranes. NECK: Normal range of motion, supple LUNGS: Diffuse wheezing bilaterally, moderate respiratory distress HEART: Regular rate and rhythm, normal S1 and S2 without murmur, rub or gallop. ABDOMEN: Soft, nontender, normoactive bowel sounds. No guarding, no rebound. . No CVA tenderness EXTREMITIES: Normal range of motion, no edema. NEUROLOGICAL: No facial assymetry, Normal speech, moving all 4 extremities spontaneously and symmetrically PSYCH: Normal mood, normal affect. SKIN: Warm, Dry, normal turgor, - Critical Care Time Total Critical Care Time: 35 Critical Care Statement: The care of this patient involved high complexity decision making to prevent further life threatening deterioration of the patient 's condition and/or to evaluate & treat vital organ system(s) failure or risk of failure. - Medical Decision Making 10/29/18 9:42 ddx - uri/pna/asthma/chf will send blood work will obtain cxr will obtain ekg to screen for acs 10/29/18 11:12 Pt has a STEMI noted on EKG - though pt denies any current chest pain - EKG noted for MAI ininferolateral leads repeat ekg ntoe for tena blum prior ekg in mar 31 2018 does not show these chant 10/29/18 11:15 called [facility] to intiiate transfer and to discuss with cardiology will give pt heparin bolus, brilinta and ASA 10/29/18 11:33 [facility] for transfer 10/29/18 11:37 10/29/18 11:56 Case discussed with KRISTIE Blackwood and Dr. Burrell - accpeted for transfer The patient was seen and examined to determine medical stability. The patient is MEDICALLY STABLE at this time. Labs, EKG, radiological studies were ordered to expedite the patient's care. I certify that I have discussed with the patient and/or his customer contact representative the following risks and benefits of the proposed transfer. Risks include worsening of patients condition during transport,auto accident, or permanent disability. Benefits include receiving specialized care not available at this facility. I certify that, based on the information available at this time, the medical benefits reasonably expected from the provision of appropriate medical treatment at the receiving facility outweigh the increased risk to the patient. I believe the patient/relative/guardian understands what I have explained and answered. The patient will be transferred to the service of Dr. Bailon at [facility] Heart Score/ECG Review - ECG Impressions Comment:: 10/29/18 11:34 Twelve-lead EKG was performed and reviewed by me. EKG performed 10:49 There is normal sinus rhythm with a normal rate. Rate of 76 ST elevations noted in inferolateral leads, no reciprocal depressions noted - these do appear new when compared with prior EKG dated 03/31/2018
[2018-10-29 11:19] VITALS: PULSE 75
[2018-10-29] MEDS ORDERED: ASPIRIN 81 MG CHEWABLE TABLETS PO ONE (11:23)
[2018-10-29] MEDS ORDERED: HEPARIN NA (PORCINE) 5,000 UNITS/ML 1ML VIAL IVPUSH ONE (11:23)
[2018-10-29 11:26] LABS: ALBUMIN 3.4 g/dl (3.4-5.0); BILIRUBIN,TOTAL 0.5 mg/dL (0.2-1); CALCIUM 9.2 mg/dL (8.5-10.1); CREATININE 0.4 mg/dL (0.55-1.3); TOT PROT 6.8 g/dl (6.4-8.2)
[2018-10-29] MEDS ORDERED: ASPIRIN 81 MG CHEWABLE TABLETS ONE (11:30)
[2018-10-29] MEDS ORDERED: HEPARIN NA (PORCINE) 5,000 UNITS/ML 1ML VIAL ONE (11:31)
[2018-10-29] MEDS ORDERED: TICAGRELOR 90 MG TABLET PO ONE ×2 (11:31→11:32)
[2018-10-29 11:40] LABS: N-TERMINAL BNP 549.6 pg/ml (5-125)
[2018-10-29 12:04] VITALS: BP 134/72
--- NOTE | 2018-10-29 16:09 | EKG ---
Test Reason : Blood Pressure : / mmHG Vent. Rate : 075 BPM Atrial Rate : 075 BPM P-R Int : 148 ms QRS Dur : 094 ms QT Int : 434 ms P-R-T Axes : -23 -17 004 degrees QTc Int : 484 ms POOR DATA QUALITY, INTERPRETATION MAY BE ADVERSELY AFFECTED AGE AND GENDER SPECIFIC ECG ANALYSIS NORMAL SINUS RHYTHM ST ELEVATION CONSIDER INFEROLATERAL INJURY OR ACUTE INFARCT ACUTE PR / STEMI ABNORMAL ECG WHEN COMPARED WITH ECG OF 31-MAR-2018 17:40, SIGNIFICANT CHANGES HAVE OCCURRED Confirmed by NORBERTO LUNA MD ([id number]) on 10/29/2018 4:08:54 PM Referred By: Confirmed By:NORBERTO LUNA MD
--- NOTE | 2018-10-29 16:09 | EKG ---
Test Reason : Blood Pressure : / mmHG Vent. Rate : 075 BPM Atrial Rate : 075 BPM P-R Int : 156 ms QRS Dur : 096 ms QT Int : 378 ms P-R-T Axes : 011 -10 024 degrees QTc Int : 422 ms AGE AND GENDER SPECIFIC ECG ANALYSIS NORMAL SINUS RHYTHM ST ELEVATION CONSIDER INFEROLATERAL INJURY OR ACUTE INFARCT ACUTE IN / STEMI ABNORMAL ECG WHEN COMPARED WITH ECG OF 31-MAR-2018 17:40, ST ELEVATION NOW PRESENT IN INFERIOR LEADS ST ELEVATION NOW PRESENT IN LATERAL LEADS Confirmed by NORBERTO LUNA MD ([id number]) on 10/29/2018 4:08:45 PM Referred By: Confirmed By:NORBERTO LUNA MD
--- NOTE | 2018-10-30 14:49 | EKG ---
Test Reason : Blood Pressure : / mmHG Vent. Rate : 076 BPM Atrial Rate : 076 BPM P-R Int : 150 ms QRS Dur : 098 ms QT Int : 416 ms P-R-T Axes : 000 -19 016 degrees QTc Int : 468 ms NORMAL SINUS RHYTHM ST ELEVATION, CONSIDER EARLY REPOLARIZATION, PERICARDITIS, OR INJURY : Possible Acute [place]- clinical correlation required NONSPECIFIC ST ABNORMALITY ABNORMAL ECG Confirmed by KARIS CACERES MD ([id number]) on 10/30/2018 2:48:43 PM Referred By: Confirmed By:KARIS CACERES MD
== END 2018-10-29 11:45 | disposition short-term general hospital (02) ==
LOC: JER 09:16
PROC: 3E0F7GC Introduction of Other Therapeutic Substance into Respiratory Tract, Via Natural or Artificial Opening (ICD-10-PCS; principal; 2018-10-29)
PROC: 3E033GC Introduction of Other Therapeutic Substance into Peripheral Vein, Percutaneous Approach (ICD-10-PCS; 2018-10-29)
DX: I21.3 ST elevation (STEMI) myocardial infarction of unspecified site (principal)
CPT/HCPCS: 36415; 80053; 82550; 82803; 83880; 84484; 85025; 87040; 93005; 93010; 99285-25; J1644

== ENCOUNTER 2020-05-27 19:44 | Emergency (ER) | payer OTHER ==
[2020-05-27 20:05] VITALS: TEMP 97.8; BMI 29.2
[2020-05-27] MEDS ORDERED: ACETAMINOPHEN 1000 MG/100 ML VIAL (NON FORMULARY) IVPB ONE (21:20)
[2020-05-27] MEDS ORDERED: ACETAMINOPHEN INJECTION 100 ML IVPB ONE (21:41)
[2020-05-27 21:51] LABS: BASO % 0.3 % (0-2.0); EOS % 0.9 % (0-4.5); HEMATOCRIT 35.8 % (32.4-45.2); HEMOGLOBIN 11.8 GM/dL (10.7-15.3); LYMPH % 19.3 % (8-40); MCH 30.7 pg (25.7-33.7); MCHC 32.8 g/dl (32.0-36.0); MEAN CELL VOLUME 93.4 fl (80-96); MEAN PLT VOLUME 8.7 fl (7.5-11.1); MONO % 5.6 % (3.8-10.2); NEUT % 73.9 % (42.8-82.8); PLATELET COUNT 166 K/MM3 (134-434); RBC 3.83 M/mm3 (3.60-5.2); RDW 13.3 % (11.6-15.6); WHITE BLOOD COUNT 6.9 K/mm3 (4.0-10.0)
[2020-05-27 22:11] LABS: CHLORIDE 106 mmol/L (98-107); POTASSIUM 3.8 mmol/L (3.5-5.1); SODIUM 139 mmol/L (136-145)
[2020-05-27 22:14] LABS: ALBUMIN 3.6 g/dl (3.4-5.0); ANION GAP 5 MMOL/L (8-16); BLOOD UREA NITROGEN 11.8 mg/dL (7-18); CALCIUM 8.9 mg/dL (8.5-10.1); CO2 28 mmol/L (21-32); GLUCOSE,RANDOM 95 mg/dL (74-106); LIPASE 68 U/L (73-393)
[2020-05-27 22:17] LABS: CREATININE 0.8 mg/dL (0.55-1.3); SGOT/AST 20 U/L (15-37); SGPT/ALT 22 U/L (13-61)
[2020-05-27 22:19] LABS: BILIRUBIN,TOTAL 0.2 mg/dL (0.2-1); TOT PROT 6.8 g/dl (6.4-8.2)
[2020-05-27 22:20] LABS: ALK PHOS 89 U/L (45-117)
[2020-05-27 22:50] LABS: PH,URINE 6.5 (5.0-8.0); URINE APPEARANCE CLEAR; URINE BILIRUBIN NEGATIVE (NEGATIVE); URINE COLOR YELLOW; URINE GLUCOSE (UA) NEGATIVE (NEGATIVE); URINE KETONE NEGATIVE (NEGATIVE)
[2020-05-27 22:51] LABS: EPI CELLS 12 /uL (0-25.1); HYALINE CASTS 0 /uL (0-3.1); URINE BACTERIA 5 /uL (0-1359); URINE LEUK ESTERASE NEGATIVE (NEGATIVE); URINE NITRITE NEGATIVE (NEGATIVE); URINE PROTEIN NEGATIVE (NEGATIVE); URINE RBC 64 /uL (0-23.9); URINE WBC 5 /uL (0-25.8)
[2020-05-28 01:47] VITALS: BP 142/86; PULSE 88
== END 2020-05-28 01:47 | disposition home or self-care (01) ==
LOC: JER 19:44
PROC: 3E033NZ Introduction of Analgesics, Hypnotics, Sedatives into Peripheral Vein, Percutaneous Approach (ICD-10-PCS; principal; 2020-05-27)
DX: R07.89 Other chest pain (principal); R10.11 Right upper quadrant pain
CPT/HCPCS: 36415; 71046-TC-FY; 74176-TC; 76705-TC; 80053; 81003; 82550; 82553; 83690; 84484; 85025; 93005; 93010; 99285-25; J0131

== ENCOUNTER 2020-06-22 17:41 | Inpatient (IN) | payer OTHER ==
[2020-06-22 18:07] VITALS: BMI 30.2
[2020-06-22 19:16] LABS: BASO % 2.5 % (0-2.0); EOS % 0.2 % (0-4.5); HEMOGLOBIN 13.2 GM/dL (10.7-15.3); LYMPH % 15.2 % (8-40); MCH 31.2 pg (25.7-33.7); MCHC 33.8 g/dl (32.0-36.0); MEAN CELL VOLUME 92.2 fl (80-96); MEAN PLT VOLUME 9.4 fl (7.5-11.1); MONO % 7.3 % (3.8-10.2); NEUT % 74.8 % (42.8-82.8); PLATELET COUNT 254 K/MM3 (134-434); RBC 4.23 M/mm3 (3.60-5.2); RDW 12.8 % (11.6-15.6); WHITE BLOOD COUNT 5.7 K/mm3 (4.0-10.0)
[2020-06-22 19:32] LABS: CHLORIDE 104 mmol/L (98-107); SODIUM 138 mmol/L (136-145)
[2020-06-22 19:34] LABS: CALCIUM 9.1 mg/dL (8.5-10.1)
[2020-06-22 19:35] LABS: ALBUMIN 3.5 g/dl (3.4-5.0); ANION GAP 6 MMOL/L (8-16); BLOOD UREA NITROGEN 9.7 mg/dL (7-18); CO2 28 mmol/L (21-32); GLUCOSE,RANDOM 90 mg/dL (74-106); LIPASE 81 U/L (73-393)
[2020-06-22 19:38] LABS: CREATININE 0.5 mg/dL (0.55-1.3); PHOSPHOROUS 3.2 mg/dL (2.5-4.9); SGOT/AST 41 U/L (15-37); SGPT/ALT 51 U/L (13-61)
[2020-06-22 19:39] LABS: BILIRUBIN,TOTAL 0.7 mg/dL (0.2-1)
[2020-06-22 19:40] LABS: TOT PROT 7.8 g/dl (6.4-8.2)
[2020-06-22 19:41] LABS: ALK PHOS 90 U/L (45-117)
[2020-06-22 21:55] LABS: EPI CELLS >36 /uL (0-25.1); HYALINE CASTS 4 /uL (0-3.1); PH,URINE 8.5 (5.0-8.0); URINE APPEARANCE CLOUDY; URINE BACTERIA 139 /uL (0-1359); URINE BILIRUBIN NEGATIVE (NEGATIVE); URINE COLOR YELLOW; URINE GLUCOSE (UA) NEGATIVE (NEGATIVE); URINE KETONE 2+ (NEGATIVE); URINE LEUK ESTERASE 1+ (NEGATIVE); URINE NITRITE NEGATIVE (NEGATIVE); URINE PROTEIN 2+ (NEGATIVE); URINE RBC 322 /uL (0-23.9); URINE WBC 49 /uL (0-25.8)
[2020-06-23 07:16] LABS: BASO % 0.2 % (0-2.0); EOS % 0.6 % (0-4.5); HEMATOCRIT 34.6 % (32.4-45.2); HEMOGLOBIN 11.7 GM/dL (10.7-15.3); LYMPH % 30.2 % (8-40); MCH 30.9 pg (25.7-33.7); MCHC 33.7 g/dl (32.0-36.0); MEAN CELL VOLUME 91.8 fl (80-96); MEAN PLT VOLUME 8.3 fl (7.5-11.1); MONO % 10.4 % (3.8-10.2); NEUT % 58.6 % (42.8-82.8); PLATELET COUNT 225 K/MM3 (134-434); RBC 3.77 M/mm3 (3.60-5.2); RDW 12.7 % (11.6-15.6); WHITE BLOOD COUNT 5.9 K/mm3 (4.0-10.0)
[2020-06-23 07:47] LABS: ANION GAP 6 MMOL/L (8-16); BLOOD UREA NITROGEN 6.7 mg/dL (7-18); CALCIUM 8.6 mg/dL (8.5-10.1); CHLORIDE 105 mmol/L (98-107); CO2 27 mmol/L (21-32); GLUCOSE,RANDOM 89 mg/dL (74-106); SODIUM 138 mmol/L (136-145)
[2020-06-23 07:50] LABS: SGPT/ALT 39 U/L (13-61)
[2020-06-23 07:51] LABS: CREATININE 0.4 mg/dL (0.55-1.3); SGOT/AST 27 U/L (15-37)
[2020-06-23 07:52] LABS: BILIRUBIN,TOTAL 0.5 mg/dL (0.2-1); TOT PROT 6.6 g/dl (6.4-8.2)
[2020-06-23 07:53] LABS: ALK PHOS 77 U/L (45-117)
[2020-06-23 17:34] LABS: EPI CELLS >36 /uL (0-25.1); HYALINE CASTS 8 /uL (0-3.1); PH,URINE 7.5 (5.0-8.0); URINE APPEARANCE CLEAR; URINE BACTERIA 97 /uL (0-1359); URINE BILIRUBIN NEGATIVE (NEGATIVE); URINE COLOR DK YELLOW; URINE GLUCOSE (UA) NEGATIVE (NEGATIVE); URINE KETONE 2+ (NEGATIVE); URINE LEUK ESTERASE TRACE (NEGATIVE); URINE NITRITE NEGATIVE (NEGATIVE); URINE PROTEIN 2+ (NEGATIVE); URINE WBC 99 /uL (0-25.8)
[2020-06-23 19:07] LABS: URINE RBC 209 /uL (0-23.9); YEAST FEW (NEGATIVE)
[2020-06-26 09:50] LABS: HEMOGLOBIN 11.9 GM/dL (10.7-15.3); MCH 30.8 pg (25.7-33.7); MEAN CELL VOLUME 93.5 fl (80-96); MEAN PLT VOLUME 8.8 fl (7.5-11.1); PLATELET COUNT 272 K/MM3 (134-434); RBC 3.85 M/mm3 (3.60-5.2); RDW 12.6 % (11.6-15.6); WHITE BLOOD COUNT 5.3 K/mm3 (4.0-10.0)
[2020-06-26 10:19] LABS: CALCIUM 8.7 mg/dL (8.5-10.1)
[2020-06-26 10:20] LABS: ALBUMIN 3.2 g/dl (3.4-5.0); BLOOD UREA NITROGEN 4.6 mg/dL (7-18)
[2020-06-26 10:23] LABS: CREATININE 0.6 mg/dL (0.55-1.3)
[2020-06-26 10:24] LABS: BILIRUBIN,TOTAL 0.7 mg/dL (0.2-1); TOT PROT 6.8 g/dl (6.4-8.2)
[2020-06-27 08:52] LABS: BASO % 0.5 % (0-2.0); EOS % 1.6 % (0-4.5); HEMATOCRIT 35.3 % (32.4-45.2); LYMPH % 29.9 % (8-40); MCH 31.2 pg (25.7-33.7); MCHC 33.9 g/dl (32.0-36.0); MEAN CELL VOLUME 92.1 fl (80-96); MEAN PLT VOLUME 8.5 fl (7.5-11.1); PLATELET COUNT 267 K/MM3 (134-434); RBC 3.84 M/mm3 (3.60-5.2); RDW 12.6 % (11.6-15.6); WHITE BLOOD COUNT 6.6 K/mm3 (4.0-10.0)
[2020-06-27 09:44] LABS: CREATININE 0.5 mg/dL (0.55-1.3); PHOSPHOROUS 3.4 mg/dL (2.5-4.9)
[2020-06-27 09:46] LABS: BILIRUBIN,TOTAL 1.2 mg/dL (0.2-1)
[2020-06-27 09:47] LABS: TOT PROT 6.4 g/dl (6.4-8.2)
[2020-06-27 09:56] LABS: ALBUMIN 3.1 g/dl (3.4-5.0); BLOOD UREA NITROGEN 3.4 mg/dL (7-18); CALCIUM 8.9 mg/dL (8.5-10.1)
[2020-06-27 09:57] LABS: MAGNESIUM 1.9 mg/dL (1.8-2.4)
[2020-06-28 09:09] LABS: CHLORIDE 108 mmol/L (98-107); SODIUM 143 mmol/L (136-145)
[2020-06-28 09:18] LABS: ALBUMIN 3.1 g/dl (3.4-5.0); ANION GAP 10 MMOL/L (8-16); BLOOD UREA NITROGEN 6.7 mg/dL (7-18); CALCIUM 9.1 mg/dL (8.5-10.1); CO2 25 mmol/L (21-32); GLUCOSE,RANDOM 91 mg/dL (74-106)
[2020-06-28 09:21] LABS: BILIRUBIN,TOTAL 0.5 mg/dL (0.2-1); CREATININE 0.5 mg/dL (0.55-1.3); PHOSPHOROUS 3.4 mg/dL (2.5-4.9); SGOT/AST 17 U/L (15-37); SGPT/ALT 35 U/L (13-61); TOT PROT 6.6 g/dl (6.4-8.2)
[2020-06-28 09:23] LABS: ALK PHOS 84 U/L (45-117)
[2020-06-28 11:59] VITALS: BP 140/76; PULSE 71; TEMP 98.6
[2020-06-28 12:12] LABS: BASO % 0.3 % (0-2.0); EOS % 1.4 % (0-4.5); HEMOGLOBIN 11.9 GM/dL (10.7-15.3); LYMPH % 28.2 % (8-40); MCHC 33.1 g/dl (32.0-36.0); MEAN CELL VOLUME 93.7 fl (80-96); MEAN PLT VOLUME 9.2 fl (7.5-11.1); MONO % 9.8 % (3.8-10.2); NEUT % 60.3 % (42.8-82.8); PLATELET COUNT 260 K/MM3 (134-434); RBC 3.84 M/mm3 (3.60-5.2); RDW 13.2 % (11.6-15.6); WHITE BLOOD COUNT 8.4 K/mm3 (4.0-10.0)
== END 2020-06-28 18:17 | disposition home or self-care (01) | DRG 137 ==
LOC: JER 17:41 → JERBED 06-23 01:19 → J6WEST-2 06-24 03:46
PROVIDERS: ADMIT Hospitalist; ATTEND Internal Medicine
DX: U07.1 COVID-19 (principal); A08.39 Other viral enteritis; I10 Essential (primary) hypertension; E78.5 Hyperlipidemia, unspecified; R19.7 Diarrhea, unspecified; R11.2 Nausea with vomiting, unspecified; R10.13 Epigastric pain; N20.0 Calculus of kidney; B19.20 Unspecified viral hepatitis C without hepatic coma; I25.10 Atherosclerotic heart disease of native coronary artery without angina pectoris; N39.0 Urinary tract infection, site not specified; R31.9 Hematuria, unspecified; R63.0 Anorexia; Z68.30 Body mass index [BMI] 30.0-30.9, adult
CPT/HCPCS: 36415; 71045-TC-FY; 74177-TC; 74181-TC; 74220-TC-FY; 74240-TC-FY; 76705-TC; 80053; 81003; 82272; 82550; 82728; 83615; 83690; 83735; 84100; 84443; 84484; 85025; 85027; 85379; 86140; 87077; 87086; 93005; 93010; 93306-TC; 99285-25; C9803; J0131; U0003

== ENCOUNTER → 2020-12-25 | Day surgery (SDC) | payer OTHER | END | disposition home or self-care (01) | LOC: JASU-SURG 04:32 | PROVIDERS: ATTEND Urology | DX: Z53.8 Procedure and treatment not carried out for other reasons (principal) ==

== ENCOUNTER 2021-01-22 04:24 | Day surgery (SDC) | payer OTHER ==
[2021-01-19 14:38] VITALS: BMI 31.8
[2021-01-22] MEDS ORDERED: PROPOFOL 20 ML ONE ×2 (10:59→11:21)
[2021-01-22] MEDS ORDERED: KETOROLAC TROMETHAMINE 30 MG/1 ML VIAL ONE (10:59)
[2021-01-22] MEDS ORDERED: LIDOCAINE HCL/PF 2% SDV 5ML VIAL ONE (10:59)
[2021-01-22 15:53] VITALS: TEMP 97.2
[2021-01-22 15:57] VITALS: BP 120/70; PULSE 70
== END 2021-01-22 13:00 | disposition home or self-care (01) ==
LOC: JASU-SURG 04:24
PROVIDERS: ATTEND Urology
PROC: 0TF3XZZ Fragmentation in Right Kidney Pelvis, External Approach (ICD-10-PCS; principal; 2021-01-22 10:00)
DX: N20.0 Calculus of kidney (principal)

== ENCOUNTER 2022-08-15 14:19 | Observation (INO) | payer OTHER ==
[2022-08-15 14:31] VITALS: BP 138/88; PULSE 89; RESP 19; TEMP 98.1; BMI 30.9
[2022-08-15 16:35] LABS: BASO % 0.6 % (0-2.0); EOS % 0.8 % (0-4.5); HEMATOCRIT 37.9 % (32.4-45.2); HEMOGLOBIN 12.4 GM/dL (10.7-15.3); LYMPH % 34.6 % (8-40); MCH 30.6 pg (25.7-33.7); MCHC 32.6 g/dl (32.0-36.0); MEAN PLT VOLUME 9.4 fl (7.5-11.1); MONO % 7.3 % (3.8-10.2); NEUT % 56.7 % (42.8-82.8); PLATELET COUNT 172 10^3/uL (134-434); RBC 4.04 M/mm3 (3.60-5.2); RDW 13.1 % (11.6-15.6); WHITE BLOOD COUNT 6.3 K/mm3 (4.0-10.0)
[2022-08-15 16:42] LABS: ALBUMIN 3.6 g/dl (3.4-5.0); BLOOD UREA NITROGEN 13.9 mg/dL (7-18); CALCIUM 8.9 mg/dL (8.5-10.1)
[2022-08-15 16:45] LABS: CREATININE 0.6 mg/dL (0.55-1.3)
[2022-08-15 16:47] LABS: BILIRUBIN,TOTAL 0.4 mg/dL (0.2-1); TOT PROT 6.8 g/dl (6.4-8.2)
[2022-08-15 17:26] LABS: ACTIVATED PTT 30.1 SECONDS (25.2-36.5); INR 1.17 (0.83-1.09); PROTHROMBIN TIME (PATIENT) 13.5 SEC (9.7-13.0)
[2022-08-15] MEDS ORDERED: ASPIRIN 81 MG CHEWABLE TABLETS PO ONE (20:46)
[2022-08-15] MEDS ORDERED: ASPIRIN 81 MG CHEWABLE TABLETS ONE (21:11)
== END 2022-08-15 23:00 | disposition left against medical advice (07) ==
LOC: JER 14:19 → JERBED 21:10
PROVIDERS: ADMIT Internal Medicine; ATTEND Internal Medicine
DX: R07.89 Other chest pain (principal); M54.6 Pain in thoracic spine; I10 Essential (primary) hypertension; I25.10 Atherosclerotic heart disease of native coronary artery without angina pectoris; E78.5 Hyperlipidemia, unspecified; Z86.19 Personal history of other infectious and parasitic diseases; Z87.891 Personal history of nicotine dependence
CPT/HCPCS: 0241U-QW; 36415; 71045-TC-FY; 71275-TC; 80053; 84484; 85025; 85610; 85730; 93005; 93010; 99285-25; G0378

== ENCOUNTER 2023-12-21 12:06 | Inpatient (IN) | payer OTHER ==
[2023-12-21 15:06] LABS: BASO % 0.5 % (0-2.0); EOS % 0.4 % (0-4.5); HEMATOCRIT 39.9 % (32.4-45.2); HEMOGLOBIN 13.4 GM/dL (10.7-15.3); LYMPH % 20.5 % (8-40); MCH 32.2 pg (25.7-33.7); MCHC 33.7 g/dl (32.0-36.0); MEAN CELL VOLUME 95.5 fl (80-96); MEAN PLT VOLUME 9.2 fl (7.5-11.1); MONO % 5.8 % (3.8-10.2); NEUT % 72.8 % (42.8-82.8); PLATELET COUNT 260 10^3/uL (134-434); RBC 4.18 M/mm3 (3.60-5.2); WHITE BLOOD COUNT 7.8 K/mm3 (4.0-10.0)
[2023-12-21 15:31] LABS: POTASSIUM 4.9 mmol/L (3.5-5.1)
[2023-12-21 15:33] LABS: ALBUMIN 3.6 g/dl (3.4-5.0); BLOOD UREA NITROGEN 9.7 mg/dL (7-18); CALCIUM 9.2 mg/dL (8.5-10.1)
[2023-12-21 15:36] LABS: CREATININE 0.6 mg/dL (0.55-1.3)
[2023-12-21 15:37] LABS: BILIRUBIN,TOTAL 0.5 mg/dL (0.2-1); TOT PROT 7.5 g/dl (6.4-8.2)
[2023-12-21] MEDS ORDERED: PREGABALIN 50 MG CAPSULE ONE (22:10)
[2023-12-21] MEDS ORDERED: LIDOCAINE 5% TOPICAL PATCH ONE (22:11)
[2023-12-21] MEDS ORDERED: ACETAMINOPHEN INJECTION 100 ML IVPB ONE (22:11)
[2023-12-21] MEDS ORDERED: PREGABALIN 25 MG CAPSULE ONE (22:11)
[2023-12-21] MEDS: LIDOCAINE PATCH REMOVAL MC SCH (22:19)
[2023-12-21] MEDS: PREGABALIN 75 MG CAPSULE PO SCH (22:19)
[2023-12-21] MEDS: LIDOCAINE 5% TOPICAL PATCH TP ONE (22:19)
[2023-12-21] MEDS: ACETAMINOPHEN 1000 MG/100 ML BAG IVPB ONE (22:19)
[2023-12-22] MEDS ORDERED: ACETAMINOPHEN 325 MG TABLET (FP) ONE ×2 (04:46→09:28)
[2023-12-22] MEDS: ACETAMINOPHEN 325 MG TABLET (FP) PO PRN (04:56)
[2023-12-22 07:59] LABS: BASO % 0.5 % (0-2.0); EOS % 1.4 % (0-4.5); HEMOGLOBIN 12.7 GM/dL (10.7-15.3); LYMPH % 41.1 % (8-40); MCH 31.7 pg (25.7-33.7); MCHC 33.4 g/dl (32.0-36.0); MONO % 10.9 % (3.8-10.2); NEUT % 46.1 % (42.8-82.8); PLATELET COUNT 181 10^3/uL (134-434); RDW 12.8 % (11.6-15.6); WHITE BLOOD COUNT 6.9 K/mm3 (4.0-10.0)
[2023-12-22 08:19] LABS: POTASSIUM 3.4 mmol/L (3.5-5.1)
[2023-12-22 08:20] LABS: CALCIUM 8.7 mg/dL (8.5-10.1)
[2023-12-22 08:21] LABS: ALBUMIN 3.4 g/dl (3.4-5.0); BLOOD UREA NITROGEN 8.2 mg/dL (7-18); MAGNESIUM 1.9 mg/dL (1.8-2.4)
[2023-12-22 08:24] LABS: CREATININE 0.5 mg/dL (0.55-1.3); PHOSPHOROUS 3.7 mg/dL (2.5-4.9)
[2023-12-22 08:26] LABS: BILIRUBIN,TOTAL 0.4 mg/dL (0.2-1); TOT PROT 6.6 g/dl (6.4-8.2)
[2023-12-22] MEDS ORDERED: BUPRENORPHINE/NALOXONE 2 MG/0.5 MG FILM PACKET ONE (09:27)
[2023-12-22] MEDS ORDERED: ENALAPRIL MALEATE 5 MG TABLET ONE (09:27)
[2023-12-22] MEDS ORDERED: amLODIPine BESYLATE 10 MG TABLET (FP) ONE (09:28)
[2023-12-22] MEDS ORDERED: CARVEDILOL 6.25 MG TABLET (FP) ONE (09:28)
[2023-12-22] MEDS: ENALAPRIL MALEATE 5 MG TABLET PO SCH (09:35)
[2023-12-22] MEDS: CARVEDILOL 6.25 MG TABLET (FP) PO SCH (09:35)
[2023-12-22] MEDS: BUPRENORPHINE/NALOXONE 2 MG/0.5 MG FILM PACKET SL SCH (09:35)
[2023-12-22] MEDS: amLODIPine BESYLATE 10 MG TABLET (FP) PO SCH (09:35)
[2023-12-22] MEDS: ACETAMINOPHEN 1000 MG/100 ML BAG IVPB PRN (14:01)
[2023-12-22] MEDS: POTASSIUM CHLORIDE ORAL LIQUID 20 MEQ/15 ML PO ONE (15:08)
[2023-12-24] MEDS ORDERED: ceFAZolin SODIUM 1 GM VIAL ONE ×2 (07:30→13:54)
[2023-12-24] MEDS ORDERED: ONDANSETRON 4 MG/2 ML VIAL ONE (07:30)
[2023-12-24] MEDS ORDERED: DEXAMETHASONE SOD PHOSPHATE 4 MG/1 ML VIAL ONE (07:30)
[2023-12-24] MEDS ORDERED: SEVOFLURANE 250 ML BTL ONE (07:30)
[2023-12-24] MEDS ORDERED: SODIUM CHLORIDE 0.9% P/F 10 ML VIAL IJ ONE (07:30)
[2023-12-24] MEDS ORDERED: LIDOCAINE HCL/PF 2% SDV 5ML VIAL ONE ×2 (07:30→07:40)
[2023-12-24] MEDS ORDERED: PROPOFOL 60 ML ONE (07:31)
[2023-12-24] MEDS ORDERED: MIDAZOLAM HCL 2 MG/2 ML SINGLE DOSE VIAL ONE (07:37)
[2023-12-24] MEDS ORDERED: THROMBIN (BOVINE) 5,000 UNIT VIAL TP ONE ×2 (07:40→11:08)
[2023-12-24] MEDS ORDERED: GLYCOPYRROLATE 0.2 MG/1 ML VIAL ONE (07:40)
[2023-12-24] MEDS ORDERED: EPINEPHrine/PF 1 MG/1 ML (1:1,000) AMPULE ONE (07:40)
[2023-12-24] MEDS ORDERED: KETAMINE HCL 200 MG/20 ML VIAL ONE (07:41)
[2023-12-24] MEDS ORDERED: HYDROmorphone HCl 2 MG/ML VIAL ONE ×2 (07:42→13:18)
[2023-12-24] MEDS ORDERED: ACETAMINOPHEN INJECTION 100 ML IVPB ONE (07:43)
[2023-12-24] MEDS: ceFAZolin SODIUM 1 GM VIAL IVPB ONE (09:15)
[2023-12-24] MEDS ORDERED: TRANEXAMIC ACID 1000 MG/10 ML VIAL ONE ×2 (09:22→13:17)
[2023-12-24 09:23] LABS: POTASSIUM 4.1 mmol/L (3.5-5.1)
[2023-12-24 09:25] LABS: CALCIUM 9.2 mg/dL (8.5-10.1)
[2023-12-24 09:26] LABS: ALBUMIN 3.4 g/dl (3.4-5.0); BLOOD UREA NITROGEN 15.4 mg/dL (7-18)
[2023-12-24 09:29] LABS: CREATININE 0.6 mg/dL (0.55-1.3)
[2023-12-24 09:30] LABS: BILIRUBIN,TOTAL 0.3 mg/dL (0.2-1); TOT PROT 6.7 g/dl (6.4-8.2)
[2023-12-24] MEDS ORDERED: ROCURONIUM BROMIDE 50 MG/5 ML SYRINGE ONE ×2 (09:31→09:56)
[2023-12-24] MEDS: THROMBIN (BOVINE) 5,000 UNIT VIAL TP ONE (09:34)
[2023-12-24] MEDS ORDERED: MAGNESIUM SULF 50% (8.12 MEQ/2 ML-1 GM VIAL) ONE (09:45)
[2023-12-24] MEDS ORDERED: PROPOFOL 20 ML ONE ×2 (09:46→10:04)
[2023-12-24] MEDS ORDERED: ONDANSETRON 4 MG/2 ML VIAL IVPUSH PRN ×2 (10:11→15:41)
[2023-12-24] MEDS ORDERED: SUGAMMADEX SODIUM 200 MG/2 ML VIAL ONE (10:21)
[2023-12-24] MEDS ORDERED: PHENYLEPHRINE HCL 10 MG/1 ML SINGLE DOSE VIAL ONE ×2 (10:33→14:58)
[2023-12-24] MEDS ORDERED: VANCOMYCIN 1,000 MG VIAL (RESTRICTED TO ID ONLY) ONE (13:17)
[2023-12-24] MEDS ORDERED: LABETALOL HCL 20 MG/4 ML VIAL ONE (13:28)
[2023-12-24] MEDS ORDERED: HYDROmorphone *PCA* 10MG/50ML DISP.SYRIN ONE (15:26)
[2023-12-24] MEDS: PHENYLEPHRINE NS PREMIX 50,000 MCG/500 ML BAG IVPB SCH ×2 (16:15)
[2023-12-24 16:55] LABS: HEMATOCRIT 27.4 % (32.4-45.2); HEMOGLOBIN 8.9 GM/dL (10.7-15.3); MCH 31.2 pg (25.7-33.7); MCHC 32.4 g/dl (32.0-36.0); MEAN CELL VOLUME 96.1 fl (80-96); MEAN PLT VOLUME 8.4 fl (7.5-11.1); PLATELET COUNT 180 10^3/uL (134-434); RBC 2.85 M/mm3 (3.60-5.2); RDW 12.8 % (11.6-15.6); WHITE BLOOD COUNT 16.2 K/mm3 (4.0-10.0)
[2023-12-24 17:01] LABS: COCAINE, UR NEGATIVE (NEGATIVE); METHADONE, UR NEGATIVE (NEGATIVE); URINE AMPHETAMINES NEGATIVE (NEGATIVE); URINE BARBITURATES NEGATIVE (NEGATIVE)
[2023-12-24 17:02] LABS: PHENCYCLIDINE,URINE NEGATIVE (NEGATIVE)
[2023-12-24 17:04] LABS: OPIATES, URI POSITIVE (NEGATIVE); URINE BENZODIAZEPINES POSITIVE (NEGATIVE)
[2023-12-24 18:11] LABS: POTASSIUM 4.5 mmol/L (3.5-5.1)
[2023-12-24 18:13] LABS: BLOOD UREA NITROGEN 18.5 mg/dL (7-18); CALCIUM 8.2 mg/dL (8.5-10.1)
[2023-12-24] MEDS: LACTATED RINGERS SOLUTION 1,000 ML IV SCH (18:15)
[2023-12-24 18:16] LABS: CREATININE 1.3 mg/dL (0.55-1.3)
[2023-12-24 18:18] LABS: BILIRUBIN,TOTAL 0.2 mg/dL (0.2-1)
[2023-12-24 19:13] LABS: ALBUMIN 2.6 g/dl (3.4-5.0)
[2023-12-24 19:23] LABS: ARTERIAL BLD GAS O2 SATURATION 99.1 % (95-98); ARTERIAL BLOOD GAS BASE EXCESS -4.1 mmol/L (-2-2); ARTERIAL BLOOD GAS PO2 176.8 mmHg (80-100); ARTERIAL BLOOD GAS pH 7.323 (7.350-7.450)
[2023-12-24 19:38] LABS: LACTIC ACID 2.2 mmol/L (0.4-2.0)
[2023-12-24 19:45] LABS: PH,URINE 6.5 (5.0-8.0); URINE APPEARANCE CLEAR; URINE BILIRUBIN NEGATIVE (NEGATIVE); URINE COLOR YELLOW; URINE GLUCOSE (UA) NEGATIVE (NEGATIVE); URINE KETONE NEGATIVE (NEGATIVE); URINE LEUK ESTERASE NEGATIVE (NEGATIVE); URINE NITRITE NEGATIVE (NEGATIVE); URINE PROTEIN NEGATIVE (NEGATIVE); URINE UROBILINOGEN 0.2 mg/dL (0.2-1.0)
[2023-12-24] MEDS: HYDROmorphone *PCA* 10MG/50ML DISP.SYRIN PCA SCH (19:45)
[2023-12-24] MEDS ORDERED: PREGABALIN 75 MG CAPSULE PO SCH (22:00)
[2023-12-24] MEDS ORDERED: CARVEDILOL 6.25 MG TABLET (FP) PO SCH (22:00)
[2023-12-24] MEDS: CHLORHEXIDINE GLUCONATE 4% CLEANSER FOR DECOLONIZATION TP SCH (22:05)
[2023-12-24] MEDS: MUPIROCIN 2% TOPICAL OINTMENT FOR DECOLONIZATION NS SCH (22:06)
[2023-12-24] MEDS: LACTATED RINGERS SOLUTION 1,000 ML/1,000 ML INFUS.BAG IV ONE (22:06)
[2023-12-24] MEDS: VANCOMYCIN/WATER FOR INJ (PEG) 1,000 MG/200 ML BAG IVPB ONE (22:09)
[2023-12-24] MEDS: PIPERACILLIN/TAZOB 3.375 GM 3.375 GM in DEXTROSE 5%-WATER - 50 ML IVPB SCH (22:09)
[2023-12-24] MEDS: PREGABALIN 75 MG CAPSULE PO SCH (22:18)
[2023-12-24] MEDS: LACTATED RINGERS SOLUTION 1,000 ML/1,000 ML INFUS.BAG IV SCH (23:46)
[2023-12-24] MEDS: ACETAMINOPHEN 1000 MG/100 ML BAG IVPB PRN (23:46)
[2023-12-25 07:30] LABS: POTASSIUM 4.9 mmol/L (3.5-5.1)
[2023-12-25 07:32] LABS: CALCIUM 7.9 mg/dL (8.5-10.1)
[2023-12-25 07:33] LABS: ALBUMIN 2.5 g/dl (3.4-5.0); BLOOD UREA NITROGEN 23.7 mg/dL (7-18)
[2023-12-25 07:36] LABS: BASO % 0.1 % (0-2.0); CREATININE 0.9 mg/dL (0.55-1.3); HEMOGLOBIN 7.3 GM/dL (10.7-15.3); MCH 31.7 pg (25.7-33.7); MEAN CELL VOLUME 96.1 fl (80-96); MEAN PLT VOLUME 8.8 fl (7.5-11.1); MONO % 7.6 % (3.8-10.2); NEUT % 79.3 % (42.8-82.8); PHOSPHOROUS 4.6 mg/dL (2.5-4.9); PLATELET COUNT 132 10^3/uL (134-434); RBC 2.29 M/mm3 (3.60-5.2); RDW 12.8 % (11.6-15.6); WHITE BLOOD COUNT 17.1 K/mm3 (4.0-10.0)
[2023-12-25 07:37] LABS: TOT PROT 4.9 g/dl (6.4-8.2)
[2023-12-25 07:38] LABS: BILIRUBIN,TOTAL 0.4 mg/dL (0.2-1)
[2023-12-25 07:39] LABS: MAGNESIUM 2.1 mg/dL (1.8-2.4)
[2023-12-25 08:06] LABS: LACTIC ACID 2.3 mmol/L (0.4-2.0)
[2023-12-25] MEDS: ENOXAPARIN NA (PORCINE) 40 MG/0.4 ML DISP.SYRIN SQ SCH (09:21)
[2023-12-25] MEDS ORDERED: ENALAPRIL MALEATE 5 MG TABLET PO SCH (10:00)
[2023-12-25] MEDS ORDERED: amLODIPine BESYLATE 10 MG TABLET (FP) PO SCH (10:00)
[2023-12-25] MEDS ORDERED: BUPRENORPHINE/NALOXONE 2 MG/0.5 MG FILM PACKET SL SCH (10:00)
[2023-12-25] MEDS: HYDROmorphone *PCA* 10MG/50ML DISP.SYRIN PCA SCH ×3 (11:13→20:14)
[2023-12-25] MEDS: LACTATED RINGERS SOLUTION 1,000 ML IV SCH ×2 (11:13→11:14)
[2023-12-25 11:59] LABS: LACTIC ACID 2.4 mmol/L (0.4-2.0)
[2023-12-25] MEDS: POLYETHYLENE GLYCOL (HEALTHYLAX) 3350 17 GM PACKET PO SCH (13:32)
[2023-12-25] MEDS: PIPERACILLIN/TAZOB 3.375 GM 3.375 GM in DEXTROSE 5%-WATER - 50 ML IVPB SCH ×2 (18:27→20:12)
[2023-12-25 19:19] LABS: BASO % 0.1 % (0-2.0); HEMOGLOBIN 8.8 GM/dL (10.7-15.3); LYMPH % 21.8 % (8-40); MCH 30.9 pg (25.7-33.7); MCHC 32.7 g/dl (32.0-36.0); MEAN CELL VOLUME 94.5 fl (80-96); MEAN PLT VOLUME 8.6 fl (7.5-11.1); MONO % 7.8 % (3.8-10.2); NEUT % 70.3 % (42.8-82.8); PLATELET COUNT 111 10^3/uL (134-434); RBC 2.86 M/mm3 (3.60-5.2); RDW 14.2 % (11.6-15.6); WHITE BLOOD COUNT 17.4 K/mm3 (4.0-10.0)
[2023-12-25 19:53] LABS: LACTIC ACID 3.3 mmol/L (0.4-2.0)
[2023-12-26] MEDS ORDERED: ACETAMINOPHEN INJECTION 100 ML IVPB ONE (06:04)
[2023-12-26] MEDS: ACETAMINOPHEN 1000 MG/100 ML BAG IVPB ONE (06:30)
[2023-12-26 08:02] LABS: HEMATOCRIT 19.5 % (32.4-45.2); MCH 31.9 pg (25.7-33.7); MCHC 34.1 g/dl (32.0-36.0); MEAN CELL VOLUME 93.6 fl (80-96); MEAN PLT VOLUME 9.3 fl (7.5-11.1); PLATELET COUNT 57 10^3/uL (134-434); RBC 2.09 M/mm3 (3.60-5.2); RDW 14.1 % (11.6-15.6)
[2023-12-26 08:24] LABS: HEMOGLOBIN 6.7 GM/dL (10.7-15.3)
[2023-12-26 08:26] LABS: POTASSIUM 4.3 mmol/L (3.5-5.1)
[2023-12-26 08:33] LABS: BLOOD UREA NITROGEN 10.2 mg/dL (7-18); CALCIUM 7.1 mg/dL (8.5-10.1); MAGNESIUM 2.1 mg/dL (1.8-2.4)
[2023-12-26 08:36] LABS: CREATININE 0.4 mg/dL (0.55-1.3); PHOSPHOROUS 1.8 mg/dL (2.5-4.9)
[2023-12-26] MEDS: NAPH,MB-DB/K PH,MBDB POWDER PACKET PO ONE ×2 (09:31→14:22)
[2023-12-26] MEDS: ACETAMINOPHEN 1000 MG/100 ML BAG IVPB SCH (12:33)
[2023-12-26] MEDS: DOCUSATE SODIUM 100 MG CAPSULE (FP) PO SCH (13:05)
[2023-12-26] MEDS: oxyCODONE HCL 5 MG TABLET PO PRN (13:05)
[2023-12-26] MEDS: HYDROmorphone HCl 2 MG/ML VIAL IVPUSH PRN (16:11)
[2023-12-26 16:53] LABS: HEMOGLOBIN 7.5 GM/dL (10.7-15.3); MCH 31.6 pg (25.7-33.7); MCHC 33.9 g/dl (32.0-36.0); MEAN CELL VOLUME 93.2 fl (80-96); MEAN PLT VOLUME 8.2 fl (7.5-11.1); RBC 2.36 M/mm3 (3.60-5.2); RDW 14.1 % (11.6-15.6)
[2023-12-26 16:58] LABS: PLATELET COUNT 21 10^3/uL (134-434)
[2023-12-26 19:05] LABS: ANISOCYTOSIS 1+; MACROCYTOSIS 0; TARGET CELLS 1+
[2023-12-26 21:14] LABS: HEMATOCRIT 23.4 % (32.4-45.2); HEMOGLOBIN 7.9 GM/dL (10.7-15.3); MCH 31.4 pg (25.7-33.7); MCHC 33.8 g/dl (32.0-36.0); MEAN CELL VOLUME 92.9 fl (80-96); MEAN PLT VOLUME 8.5 fl (7.5-11.1); PLATELET COUNT 100 10^3/uL (134-434); RBC 2.52 M/mm3 (3.60-5.2); RDW 14.2 % (11.6-15.6); WHITE BLOOD COUNT 11.9 K/mm3 (4.0-10.0)
[2023-12-26 21:21] LABS: INR 1.27 (0.83-1.09); PROTHROMBIN TIME (PATIENT) 14.5 SEC (9.7-13.0)
[2023-12-26 21:24] LABS: ACTIVATED PTT 25.7 SECONDS (25.2-36.5)
[2023-12-26 21:44] LABS: ALBUMIN 2.2 g/dl (3.4-5.0)
[2023-12-26 21:47] LABS: BILIRUBIN,DIRECT 0.2 mg/dL (0.0-0.2)
[2023-12-26 21:49] LABS: BILIRUBIN,TOTAL 0.7 mg/dL (0.2-1); TOT PROT 4.8 g/dl (6.4-8.2)
[2023-12-26] MEDS: SENNOSIDES 8.8 MG/5 ML SYRUP PO SCH (22:16)
[2023-12-27 07:27] LABS: BASO % 0.2 % (0-2.0); EOS % 0.6 % (0-4.5); HEMATOCRIT 22.1 % (32.4-45.2); HEMOGLOBIN 7.5 GM/dL (10.7-15.3); LYMPH % 22.9 % (8-40); MCH 31.7 pg (25.7-33.7); MEAN CELL VOLUME 93.3 fl (80-96); MEAN PLT VOLUME 8.6 fl (7.5-11.1); MONO % 9.1 % (3.8-10.2); NEUT % 67.2 % (42.8-82.8); PLATELET COUNT 108 10^3/uL (134-434); RBC 2.37 M/mm3 (3.60-5.2); RDW 14.7 % (11.6-15.6); WHITE BLOOD COUNT 9.8 K/mm3 (4.0-10.0)
[2023-12-27 07:47] LABS: CALCIUM 8.1 mg/dL (8.5-10.1)
[2023-12-27 07:48] LABS: ALBUMIN 2.2 g/dl (3.4-5.0); MAGNESIUM 1.9 mg/dL (1.8-2.4)
[2023-12-27 07:51] LABS: CREATININE 0.4 mg/dL (0.55-1.3); PHOSPHOROUS 2.1 mg/dL (2.5-4.9)
[2023-12-27 07:52] LABS: BILIRUBIN,TOTAL 0.7 mg/dL (0.2-1); TOT PROT 4.7 g/dl (6.4-8.2)
[2023-12-27] MEDS ORDERED: BISACODYL 10 MG SUPP.RECT PR PRN ×2 (08:09→12:31)
[2023-12-27] MEDS ORDERED: HYDROmorphone HCl 2 MG/ML VIAL IVPUSH PRN (12:31)
[2023-12-27] MEDS ORDERED: HYDROmorphone HCL CARPU-JECT 2 MG/1 ML DISP.SYRIN IVPUSH PRN (12:37)
[2023-12-27] MEDS: ACETAMINOPHEN 1000 MG/100 ML BAG IVPB SCH (13:05)
[2023-12-27] MEDS: PIPERACILLIN/TAZOB 3.375 GM 3.375 GM in DEXTROSE 5%-WATER - 50 ML IVPB SCH (17:30)
[2023-12-27] MEDS: PREGABALIN 75 MG CAPSULE PO SCH (21:29)
[2023-12-27] MEDS: SENNOSIDES 8.8 MG/5 ML SYRUP PO SCH (21:29)
[2023-12-28] MEDS: oxyCODONE HCL 5 MG TABLET PO PRN (01:12)
[2023-12-28] MEDS: DOCUSATE SODIUM 100 MG CAPSULE (FP) PO SCH (09:37)
[2023-12-28 10:21] LABS: BASO % 0.2 % (0-2.0); EOS % 0.1 % (0-4.5); HEMATOCRIT 24.9 % (32.4-45.2); HEMOGLOBIN 8.6 GM/dL (10.7-15.3); LYMPH % 14.3 % (8-40); MCH 32.2 pg (25.7-33.7); MCHC 34.6 g/dl (32.0-36.0); MEAN CELL VOLUME 93.2 fl (80-96); MEAN PLT VOLUME 8.4 fl (7.5-11.1); MONO % 6.3 % (3.8-10.2); NEUT % 79.1 % (42.8-82.8); PLATELET COUNT 167 10^3/uL (134-434); RBC 2.67 M/mm3 (3.60-5.2); RDW 14.2 % (11.6-15.6); WHITE BLOOD COUNT 11.9 K/mm3 (4.0-10.0)
[2023-12-28 10:43] LABS: POTASSIUM 3.9 mmol/L (3.5-5.1)
[2023-12-28 10:49] LABS: CALCIUM 8.4 mg/dL (8.5-10.1)
[2023-12-28 10:50] LABS: ALBUMIN 2.5 g/dl (3.4-5.0); BLOOD UREA NITROGEN 9.3 mg/dL (7-18); MAGNESIUM 2.1 mg/dL (1.8-2.4)
[2023-12-28 10:54] LABS: CREATININE 0.4 mg/dL (0.55-1.3); PHOSPHOROUS 2.9 mg/dL (2.5-4.9)
[2023-12-28 10:55] LABS: BILIRUBIN,TOTAL 0.5 mg/dL (0.2-1); TOT PROT 5.5 g/dl (6.4-8.2)
[2023-12-28] MEDS: CYCLOBENZAPRINE HCL 5 MG TABLET PO PRN (18:38)
[2023-12-29 09:17] LABS: BASO % 0.2 % (0-2.0); EOS % 0.7 % (0-4.5); HEMATOCRIT 27.9 % (32.4-45.2); HEMOGLOBIN 9.4 GM/dL (10.7-15.3); LYMPH % 18.2 % (8-40); MCH 31.5 pg (25.7-33.7); MCHC 33.5 g/dl (32.0-36.0); MEAN CELL VOLUME 94.1 fl (80-96); MEAN PLT VOLUME 7.8 fl (7.5-11.1); MONO % 8.3 % (3.8-10.2); NEUT % 72.6 % (42.8-82.8); PLATELET COUNT 243 10^3/uL (134-434); RBC 2.97 M/mm3 (3.60-5.2); RDW 14.1 % (11.6-15.6); WHITE BLOOD COUNT 11.7 K/mm3 (4.0-10.0)
[2023-12-29 09:34] LABS: POTASSIUM 3.5 mmol/L (3.5-5.1)
[2023-12-29 09:40] LABS: ALBUMIN 2.7 g/dl (3.4-5.0); BLOOD UREA NITROGEN 14.4 mg/dL (7-18); CALCIUM 8.7 mg/dL (8.5-10.1)
[2023-12-29 09:43] LABS: CREATININE 0.5 mg/dL (0.55-1.3)
[2023-12-29 09:48] LABS: BILIRUBIN,TOTAL 0.5 mg/dL (0.2-1)
[2023-12-29] MEDS: ACETAMINOPHEN 1000 MG/100 ML BAG IVPB PRN (19:41)
[2023-12-30] MEDS: POLYETHYLENE GLYCOL (HEALTHYLAX) 3350 17 GM PACKET PO SCH (09:11)
[2023-12-31 09:48] LABS: BASO % 0.2 % (0-2.0); HEMATOCRIT 27.2 % (32.4-45.2); LYMPH % 17.1 % (8-40); MCH 31.6 pg (25.7-33.7); MCHC 33.1 g/dl (32.0-36.0); MEAN CELL VOLUME 95.5 fl (80-96); MEAN PLT VOLUME 8.1 fl (7.5-11.1); NEUT % 73.7 % (42.8-82.8); PLATELET COUNT 267 10^3/uL (134-434); RBC 2.85 M/mm3 (3.60-5.2); RDW 14.4 % (11.6-15.6); WHITE BLOOD COUNT 10.1 K/mm3 (4.0-10.0)
[2023-12-31 10:18] LABS: BLOOD UREA NITROGEN 12.2 mg/dL (7-18)
[2023-12-31 10:20] LABS: CALCIUM 8.4 mg/dL (8.5-10.1)
[2023-12-31 10:22] LABS: CREATININE 0.5 mg/dL (0.55-1.3)
[2024-01-01] MEDS: oxyCODONE HCL 5 MG TABLET PO ONE (04:21)
[2024-01-01] MEDS: oxyCODONE HCL 5 MG TABLET PO PRN (15:17)
[2024-01-02] MEDS: ACETAMINOPHEN 1000 MG/100 ML BAG IVPB ONE (11:27)
[2024-01-03 09:49] VITALS: BMI 34.0
[2024-01-03] MEDS: PREGABALIN 75 MG CAPSULE PO ONE (23:53)
[2024-01-04] MEDS: PREGABALIN 75 MG CAPSULE PO SCH (09:57)
[2024-01-04] MEDS ORDERED: oxyCODONE HCL 5 MG TABLET PO PRN (14:04)
[2024-01-04] MEDS: oxyCODONE HCL 5 MG TABLET PO PRN (18:48)
[2024-01-04] MEDS: MELATONIN 5 MG TABLETS PO PRN (21:14)
[2024-01-05 09:43] LABS: BASO % 0.4 % (0-2.0); EOS % 0.4 % (0-4.5); HEMATOCRIT 29.1 % (32.4-45.2); HEMOGLOBIN 9.6 GM/dL (10.7-15.3); MCH 31.5 pg (25.7-33.7); MCHC 33.1 g/dl (32.0-36.0); MEAN CELL VOLUME 95.2 fl (80-96); MEAN PLT VOLUME 7.5 fl (7.5-11.1); MONO % 5.1 % (3.8-10.2); NEUT % 80.1 % (42.8-82.8); PLATELET COUNT 424 10^3/uL (134-434); RBC 3.06 M/mm3 (3.60-5.2); RDW 14.2 % (11.6-15.6); WHITE BLOOD COUNT 11.4 K/mm3 (4.0-10.0)
[2024-01-05 09:47] LABS: POTASSIUM 4.2 mmol/L (3.5-5.1)
[2024-01-05 10:01] LABS: ALBUMIN 2.8 g/dl (3.4-5.0); BLOOD UREA NITROGEN 10.7 mg/dL (7-18); CALCIUM 8.9 mg/dL (8.5-10.1)
[2024-01-05 10:05] LABS: CREATININE 0.5 mg/dL (0.55-1.3)
[2024-01-05 10:06] LABS: BILIRUBIN,TOTAL 0.5 mg/dL (0.2-1); TOT PROT 6.4 g/dl (6.4-8.2)
[2024-01-08] MEDS: oxyCODONE HCL 5 MG TABLET PO PRN (04:02)
[2024-01-11] MEDS: ACETAMINOPHEN 1000 MG/100 ML BAG IVPB PRN (05:59)
[2024-01-13] MEDS: ACETAMINOPHEN 1000 MG/100 ML BAG IVPB PRN (00:45)
[2024-01-13 03:12] VITALS: RESP 18
[2024-01-14] MEDS: oxyCODONE HCL 5 MG TABLET PO ONE ×2 (00:45→03:01)
[2024-01-14] MEDS: traMADol HCL 50 MG TABLET PO PRN (11:38)
[2024-01-14] MEDS: ACETAMINOPHEN 1000 MG/100 ML BAG IVPB ONE (11:52)
[2024-01-14 14:35] VITALS: BP 128/71; PULSE 84; TEMP 98.4
== END 2024-01-14 19:11 | DRG 304 ==
LOC: JERFT 12:06 → JER 12:06 → OBSVTOIN 18:26 → JERBED 18:26 → J7W 12-22 09:40 → JICU 12-24 19:54 → J6S 12-27 12:17
PROVIDERS: ADMIT Internal Medicine; ATTEND Internal Medicine
PROC: 0SG107J Fusion of 2 or more Lumbar Vertebral Joints with Autologous Tissue Substitute, Posterior Approach, Anterior Column, Open Approach (ICD-10-PCS; 2023-12-24)
PROC: 0SB20ZZ Excision of Lumbar Vertebral Disc, Open Approach (ICD-10-PCS; 2023-12-24)
PROC: 00QT0ZZ Repair Spinal Meninges, Open Approach (ICD-10-PCS; 2023-12-24)
PROC: 00NY0ZZ Release Lumbar Spinal Cord, Open Approach (ICD-10-PCS; 2023-12-24)
PROC: 01NB0ZZ Release Lumbar Nerve, Open Approach (ICD-10-PCS; 2023-12-24)
PROC: 0SG10AJ Fusion of 2 or more Lumbar Vertebral Joints with Interbody Fusion Device, Posterior Approach, Anterior Column, Open Approach (ICD-10-PCS; principal; 2023-12-24 08:00)
PROC: 30233N1 Transfusion of Nonautologous Red Blood Cells into Peripheral Vein, Percutaneous Approach (ICD-10-PCS; 2023-12-25)
DX: M51.16 Intervertebral disc disorders with radiculopathy, lumbar region (principal); D62 Acute posthemorrhagic anemia; D69.6 Thrombocytopenia, unspecified; I51.81 Takotsubo syndrome; G96.11 Dural tear; M48.08 Spinal stenosis, sacral and sacrococcygeal region; M21.372 Foot drop, left foot; D72.829 Elevated white blood cell count, unspecified; E78.5 Hyperlipidemia, unspecified; I10 Essential (primary) hypertension; I25.10 Atherosclerotic heart disease of native coronary artery without angina pectoris; R20.0 Anesthesia of skin; K59.00 Constipation, unspecified
CPT/HCPCS: 36415; 36430; 36600; 70450-TC; 71045-TC-FY; 72131-TC; 72148-TC; 73521-TC-FY; 76000-TC-FY; 80048; 80053; 80076; 80307; 81003; 82542; 82803; 82962; 83010; 83605; 83615; 83735; 84100; 84484; 85025; 85027; 85032; 85045; 85379; 85384; 85610; 85730; 86022; 86803; 86850; 86880; 86900; 86901; 86922; 87040; 87522; 87635; 88304-TC; 93005; 93010; 93306-TC; 94010; 94760; 97116-GP; 97161-GP; 99285-25; C1713; J0131; P9038; P9058

== ENCOUNTER 2024-07-30 04:03 | Day surgery (SDC) | payer OTHER ==
[2024-07-27 13:03] VITALS: BMI 30.9
[2024-07-30] MEDS ORDERED: TRIAMCINOLONE ACET 40MG/1ML VIAL ONE (07:24)
[2024-07-30] MEDS ORDERED: BUPIVACAINE HCL/PF 0.5% (5MG/ML) 10 ML VIAL ONE (07:24)
[2024-07-30] MEDS ORDERED: LIDOCAINE HCL/PF 1% SDV 5ML VIAL ONE (07:25)
[2024-07-30] MEDS ORDERED: ACETAMINOPHEN 500 MG TABLET (FP) PO PRN (08:57)
[2024-07-30 14:02] VITALS: BP 171/83; PULSE 64; RESP 20; TEMP 97
== END 2024-07-30 14:56 | disposition home or self-care (01) ==
LOC: JASU-SURG 04:03
PROVIDERS: ATTEND Pain Medicine Pain Medicine
PROC: 3E0U3BZ Introduction of Anesthetic Agent into Joints, Percutaneous Approach (ICD-10-PCS; 2024-07-30)
PROC: 3E0U33Z Introduction of Anti-inflammatory into Joints, Percutaneous Approach (ICD-10-PCS; principal; 2024-07-30 12:15)
DX: M16.11 Unilateral primary osteoarthritis, right hip (principal)
CPT/HCPCS: 20610; 76000-TC-FY; 77002-TC-FY

== ENCOUNTER 2024-12-03 05:41 | Day surgery (SDC) | payer OTHER ==
[2024-12-03] MEDS ORDERED: DEXAMETHASONE SOD PHOSPHATE 10 MG/1 ML VIAL ONE (07:18)
[2024-12-03] MEDS ORDERED: LIDOCAINE HCL/PF 1% SDV 5ML VIAL ONE (07:18)
[2024-12-03] MEDS: DEXAMETHASONE SOD PHOSPHATE 10 MG/1 ML VIAL IVPUSH ONE ×2 (12:25→12:27)
[2024-12-03] MEDS: LIDOCAINE HCL 1% PRESERVATIVE FREE - 30ML VIAL IJ ONE (12:25)
[2024-12-03] MEDS: IOHEXOL 180 MG/1 ML ML IJ ONE (12:26)
[2024-12-03 12:42] VITALS: BP 149/78; PULSE 61; RESP 16; TEMP 97.6
== END 2024-12-03 12:50 | disposition home or self-care (01) ==
LOC: JASU-SURG 05:41
PROVIDERS: ATTEND Pain Medicine Pain Medicine
PROC: 3E0R3BZ Introduction of Anesthetic Agent into Spinal Canal, Percutaneous Approach (ICD-10-PCS; 2024-12-03)
PROC: 3E0R33Z Introduction of Anti-inflammatory into Spinal Canal, Percutaneous Approach (ICD-10-PCS; principal; 2024-12-03 13:15)
DX: M54.16 Radiculopathy, lumbar region (principal)
CPT/HCPCS: 76000-TC-FY; J1100

== ENCOUNTER 2025-02-16 12:49 | Emergency (ER) | payer OTHER ==
[2025-02-16 13:32] VITALS: TEMP 98; BMI 30.1
[2025-02-16 15:00] LABS: ABSOLUTE IMMATURE GRANULOCYTES 0.01 x10^3/uL (0.0-0.031); BASOPHILS # 0.04 x10^3/uL (0.01-0.08); EOSINOPHIL % 1.0 % (0.7-5.8); EOSINOPHILS # 0.08 x10^3/uL (0.04-0.36); MCHC 32.1 g/dl (32.2-35.5); MEAN CELL VOLUME 97.1 fl (79.4-94.8); MEAN PLT VOLUME 10.3 fl (9.4-12.3); MONOCYTE # 0.58 x10^3/uL (0.24-0.86); MONOCYTE % 7.4 % (4.7-12.5); RDW 13.2 % (12.4-16.4)
[2025-02-16 15:17] LABS: INR 1.15 (0.83-1.09); PROTHROMBIN TIME (PATIENT) 12.6 SEC (9.7-13.0)
[2025-02-16 15:18] LABS: GLUCOSE,RANDOM 93.0 mg/dL (74-106)
[2025-02-16 15:19] LABS: ACTIVATED PTT 32.0 SECONDS (25.2-36.5); TOT PROT 7.5 g/dl (6.4-8.2)
[2025-02-16 15:20] LABS: CO2 26.0 mmol/L (21-32)
[2025-02-16 15:21] LABS: ALK PHOS 73.0 U/L (40-150)
[2025-02-16 15:24] LABS: CREATININE 0.66 mg/dL (0.55-1.3); SGOT/AST 34.0 U/L (5-34); SGPT/ALT 25.0 U/L (0-55)
[2025-02-16 15:45] LABS: HIV INTERPRETATION NEGATIVE (NEGATIVE)
[2025-02-16 15:56] LABS: EPI CELLS 9 /uL (0-25.1); HYALINE CASTS 0 /uL (0-3.1); URINE APPEARANCE CLEAR; URINE BACTERIA 10 /uL (0-1359); URINE BILIRUBIN NEGATIVE (NEGATIVE); URINE COLOR YELLOW; URINE GLUCOSE (UA) NEGATIVE (NEGATIVE); URINE KETONE NEGATIVE (NEGATIVE); URINE LEUK ESTERASE NEGATIVE (NEGATIVE); URINE NITRITE NEGATIVE (NEGATIVE); URINE PROTEIN NEGATIVE (NEGATIVE); URINE RBC 22 /uL (0-23.9); URINE UROBILINOGEN 0.2 mg/dL (0.2-1.0); URINE WBC 3 /uL (0-25.8)
[2025-02-16] MEDS: ACETAMINOPHEN 325 MG TABLET (FP) PO ONE (16:30)
[2025-02-16] MEDS: SODIUM CHLORIDE 1,000 ML IV STA (16:30)
[2025-02-16] MEDS ORDERED: ACETAMINOPHEN 325 MG TABLET (FP) ONE (16:31)
[2025-02-16 17:34] LABS: HCV DIAGNOSTIC IN-HOUSE W/RFLX REACTIVE (NONREACTIVE)
[2025-02-16 18:25] VITALS: BP 135/78; PULSE 63; RESP 18
[2025-02-16] MEDS ORDERED: ASPIRIN 81 MG CHEWABLE TABLETS ONE (18:52)
[2025-02-16] MEDS: ASPIRIN 81 MG CHEWABLE TABLETS PO ONE (18:57)
== END 2025-02-16 20:27 | disposition home or self-care (01) ==
LOC: JER 12:49
PROC: 3E0337Z Introduction of Electrolytic and Water Balance Substance into Peripheral Vein, Percutaneous Approach (ICD-10-PCS; principal; 2025-02-16)
DX: R07.89 Other chest pain (principal); R42 Dizziness and giddiness; R20.2 Paresthesia of skin; H53.8 Other visual disturbances; R51.9 Headache, unspecified; M25.561 Pain in right knee
CPT/HCPCS: 36415; 70450-TC; 71045-TC-FY; 80053; 81003; 82550; 84484; 85025; 85610; 85730; 86803; 86850; 86900; 86901; 87389; 87522; 93005; 93010; 96360; 99285-25